=== PATIENT | female | born 1990 | race Caucasian/White ===

== ENCOUNTER → 2019-02-03 | Outpatient (CLI) | payer OTHER ==
--- NOTE | 2019-02-03 17:34 | CT ---
EXAMINATION TYPE: CT abdomen pelvis wo con DATE OF EXAM: 02/03/2019 COMPARISON: None INDICATION: Ventral hernia DLP: 989.30 mGycm, Automated exposure control for dose reduction was used. CONTRAST: 0 mL of Isovue 300. Study performed without Oral Contrast TECHNIQUE: Axial images were obtained from above the diaphragm to the pubic rami in the axial plane a t 5 mm thick sections. Reconstructed images are reviewed on the computer in the coronal plane. FINDINGS: Limited CT sections are obtained the lung bases. The lung bases are clear. CT ABDOMEN: Liver: Normal Spleen: Normal Pancreas: Normal Adrenal glands: The adrenal glands are normal. Gallbladder: Normal Kidneys: There is a 3.0 cm hypodensity within the mid right cortical medullary region. As could be a complex cyst. Underlying mass should be considered. Ultrasound is recommended for additional evaluati on. No hydronephrosis is present. No simple appearing cysts are present. There is a 0.4 cm calcifi cation at the inferior pole right kidney. No obstruction or hydronephrosis is evident. Aorta: Normal Inferior vena cava: Normal. CT PELVIS: Loops of bowel within the abdomen and pelvis are normal. Study is performed without oral contrast limiting bowel evaluation. Appendix: Normal as visualized. Urinary bladder: Normal. Genitourinary structures: There is a 4.1 cm hypodense area on the left adnexal region suspicious for a cyst. Right ovary appears normal. The uterus is unremarkable. Osseous structures: No suspicious lytic or sclerotic lesions. IMPRESSIONS: 1. Suspected 4.1 cm left ovarian cyst. This could be followed with ultrasound. 2. Cyst versus hypodense mass in the mid right kidney. Additional workup with ultrasound of the [facility] is recommended. 3. Nonobstructing renal stone inferior pole right kidney. 4. No suspicious anterior abdominal wall hernias.
== END | disposition home or self-care (01) ==
LOC: RADCTMAIN 07:56 → MERGE 07:56
PROVIDERS: ATTEND Surgery Plastic and Reconstructive Surgery
DX: N20.0 Calculus of kidney (principal)
CPT/HCPCS: 74176

== ENCOUNTER 2019-02-26 10:50 | Day surgery (SDC) | payer OTHER ==
[2019-02-21 12:33] VITALS: BMI 39.4
--- NOTE | 2019-02-26 07:58 | P.GSHP ---
History of Present Illness H&P Date: 02/26/19 CHIEF COMPLAINT: GERD HISTORY OF PRESENT ILLNESS: The patient is a 28-year-old female who presents reports gastroesophageal reflux disease. Upper endoscopy was offered for further evaluation and management. PAST MEDICAL HISTORY: Please see list. PAST SURGICAL HISTORY: Please see list. MEDICATIONS: Please see list. ALLERGIES: Please see list. SOCIAL HISTORY: No illicit drug use FAMILY HISTORY: No reports of Crohn disease or ulcerative colitis. REVIEW OF ORGAN SYSTEMS: CONSTITUTIONAL: No reports of fevers or chills. GI: Denies any blood in stools or constipation. PHYSICAL EXAM: VITAL SIGNS: Stable GENERAL: Well-developed and pleasant in no acute distress. HEENT: No scleral icterus. Extraocular movements grossly intact. Moist buccal mucosa. NECK: Supple without lymphadenopathy. CHEST: Unlabored respirations. Equal bilateral excursions. CARDIOVASCULAR: Regular rate and rhythm. Distal 2+ pulses. ABDOMEN: Soft, nondistended. MUSCULOSKELETAL: No clubbing, cyanosis, or edema. ASSESSMENT: 1. Gastroesophageal reflux disease PLAN: 1. Recommend proceeding with an upper endoscopy Past Medical History Past Medical History: Asthma Additional Past Medical History / Comment(s): possible hernia History of Any Multi-Drug Resistant Organisms: None Reported Past Surgical History: Section Additional Past Surgical History / Comment(s): C-SEC X 2 Past Anesthesia/Blood Transfusion Reactions: No Reported Reaction Smoking Status: Never smoker - Past Family History Mother Family Medical History: Deep Vein Thrombosis (DVT) Medications and Allergies Home Medications Medication Instructions Recorded Confirmed Type Calcium Carbonate [Calcium] 600 mg PO DAILY 02/21/19 02/21/19 History Cetirizine HCl [Zyrtec] 10 mg PO DAILY 02/21/19 02/21/19 History Magnesium Oxide [Mag-Ox] 500 mg PO DAILY 02/21/19 02/21/19 History Potassium 99 mg PO DAILY 02/21/19 02/21/19 History Allergies Allergy/AdvReac Type Severity Reaction Status Date / Time No Known Allergies Allergy Verified 02/03/19 11:40
[~2019-02-26 10:50] MED LIST: LACTATED RINGERS 1,000 ML IV SCH; LIDOCAINE 1% 20 ML VIAL (10MG/ML) FOR IV START INTRADERMA PRN
[2019-02-26 11:14] VITALS: TEMP 98.3
[2019-02-26] MEDS ORDERED: MIDAZOLAM 2 MG/2 ML VIAL ONE (12:46)
[2019-02-26] MEDS ORDERED: fentaNYL (PF) 50 MCG/ML 2 ML AMP ONE (12:46)
[2019-02-26] MEDS ORDERED: PROPOFOL 10 MG/ML 20 ML VIAL IV ONE (12:46)
[2019-02-26] MEDS ORDERED: LIDOCAINE 1% INJ 10MG/ML (20 ML MDV) ONE (12:46)
--- NOTE | 2019-02-26 13:02 | P.PCN ---
Date of Procedure: 02/26/19 Description of Procedure: PREOPERATIVE DIAGNOSIS: Gastroesophageal reflux disease. Morbid obesity. POSTOPERATIVE DIAGNOSIS: Morbid obesity. Gastritis. Gastroesophageal reflux disease. OPERATION: Esophagogastroduodenoscopy with biopsies along antrum. SURGEON: Heena Rubio MD ANESTHESIA: MAC. INDICATIONS: The patient is a 28-year-old female who presents with a history of reflux disease. Benefits and risks of the procedure were described. Informed consent was obtained. DESCRIPTION: The patient was brought into the endoscopy suite and laid in the left lateral decubitus position. An Olympus gastroscope was passed along the posterior oropharynx down to the distal esophagus where the squamocolumnar junction was encountered at 39 cm from the incisors. The stomach was entered and no bile reflux was found. Additional findings are listed below. Biopsies with cold forceps were obtained of the antrum. The first through third portion of the duodenum was examined and unremarkable. Retroflexion of the scope confirmed Hill grade 1 lower esophageal valve. The squamocolumnar junction demonstrated no LA grade A erosive esophagitis. The stomach was desufflated. The patient tolerated the procedure well. FINDINGS: Squamocolumnar junction 39 cm from the incisors. Diaphragmatic hiatus at 39 cm. Hill grade 1 lower esophageal valve. No LA grade A erosive esophagitis. No active duodenitis. Minimal chronic gastritis RECOMMENDATIONS: Upper endoscopy as needed. Plan - Discharge Summary Discharge Rx Participant: No New Discharge Prescriptions: No Action Cetirizine HCl [Zyrtec] 10 mg PO DAILY Potassium 99 mg PO DAILY Magnesium Oxide [Mag-Ox] 500 mg PO DAILY Calcium Carbonate [Calcium] 600 mg PO DAILY Discharge Medication List Calcium Carbonate [Calcium] 600 mg PO DAILY 02/21/19 [History] Cetirizine HCl [Zyrtec] 10 mg PO DAILY 02/21/19 [History] Magnesium Oxide [Mag-Ox] 500 mg PO DAILY 02/21/19 [History] Potassium 99 mg PO DAILY 02/21/19 [History] Follow up Appointment(s)/Referral(s): Heena Rubio MD [STAFF PHYSICIAN] - 03/11/19 Patient Instructions/Handouts: Gastroesophageal Reflux Disease (DC) Discharge Disposition: HOME SELF-CARE
[2019-02-26 13:17] VITALS: RESP 16
[2019-02-26 13:54] VITALS: BP 117/76; PULSE 64
== END 2019-02-26 14:07 | disposition home or self-care (01) ==
LOC: ORWHC2ENDO 10:50 → MERGE 12:15 → ORWHC2ENDO 14:07
PROVIDERS: ATTEND Surgery Plastic and Reconstructive Surgery
DX: K29.50 Unspecified chronic gastritis without bleeding (principal); K21.9 Gastro-esophageal reflux disease without esophagitis; E66.01 Morbid (severe) obesity due to excess calories; Z68.39 Body mass index [BMI] 39.0-39.9, adult; J45.909 Unspecified asthma, uncomplicated; Z79.899 Other long term (current) drug therapy
CPT/HCPCS: 81025; 88305; 43239; J2250; J2001; J3010; J2704

== ENCOUNTER → 2019-02-27 | Outpatient (CLI) | payer OTHER ==
--- NOTE | 2019-02-28 08:07 | US ---
EXAMINATION TYPE: US pelvis complete transvag DATE OF EXAM: 02/27/2019 COMPARISON: CT 01/2019 pelvic ultrasound of 02/27/2011 and 07/05/2017 ultrasound CLINICAL HISTORY: N83.202 OVARIAN CYST. Unable to fill bladder , pt ok' d TV TECHNIQUE: Transvaginal (TV). Date of LMP: 02/07/2019 EXAM MEASUREMENTS: Uterus: 7.4 x 4.0 x 5.3 cm Endometrial Stripe: 0.8 cm Right Ovary: 3.1 x 2.1 x 3.1 cm Left Ovary: 3.0 x 3.1 x 1.9 cm 1. Uterus: Anteverted fibroid anterior 3.0 x 2.0 x 2.4 cm hyperechoic foci anteriorly 1.2 x 0.3 x 0.9 cm may represent calcifications at the peripheral margin of this presumed uterine leiomyoma. 2. Endometrium: Within normal limits 3. Right Ovary: Multiple peripherally oriented follicles 4. Left Ovary: Multiple peripherally oriented follicles 5. Bilateral Adnexa: wnl 6. Posterior cul-de-sac: wnl IMPRESSION: 1. Hyperechoic 3.0 cm anterior uterine mass typically represents a leiomyoma or lipoma leiomyoma culver demar given that this is not definitely seen on prior the prior ultrasound of 07/05/2017 and the pelvic ultrasound of 2010 short-term follow-up is recommended in 6 months to ensure no interval growth. 2. Multiple peripherally oriented follicles can be seen in the setting of PCOS as or may be physiolog ic in nature. Correlate with clinical findings and laboratory values.
== END | disposition home or self-care (01) ==
LOC: RADUSWWP 15:34
PROVIDERS: ATTEND Family Medicine
DX: N85.9 Noninflammatory disorder of uterus, unspecified (principal)
CPT/HCPCS: 76830; 76856

== ENCOUNTER 2019-04-17 10:20 | Day surgery (SDC) | payer OTHER ==
[2019-04-14 13:12] VITALS: BMI 36.8
[~2019-04-17 10:20] MED LIST changes: +DEXAMETHASONE SOD PHOSPHATE 10 MG/ML 1 ML VIAL IV ONE; +HEPARIN SODIUM,PORCINE 5,000 UNIT/ML 1 ML VIAL SQ ONE; -LIDOCAINE 1% 20 ML VIAL (10MG/ML) FOR IV START INTRADERMA PRN; +MIDAZOLAM 2 MG/2 ML VIAL IV PRN; +ONDANSETRON 4 MG/2 ML VIAL IVP ONE; +SCOPOLAMINE 1.5MG/72HR PATCH TRANSDERM ONE
[2019-04-17] MEDS ORDERED: INDOCYANINE GREEN 25 MG VIAL IV STA (11:05)
--- NOTE | 2019-04-17 11:05 | P.GSHP ---
History of Present Illness H&P Date: 04/17/19 CHIEF COMPLAINT: Cholecystitis HISTORY OF PRESENT ILLNESS: The patient is a 28-year-old female who presents with history of epigastric including right upper quadrant abdominal pain. She underwent diagnostic studies for her gallbladder. Separately her clinical picture was consistent with cholecystitis. Now she presents for surgical intervention. PAST MEDICAL HISTORY: Please see list PAST SURGICAL HISTORY: Please see list MEDICATIONS: Please see list ALLERGIES: Denies. SOCIAL HISTORY: No illicit drug use or recent tobacco use FAMILY HISTORY: Pertinent for gallbladder disease REVIEW OF ORGAN SYSTEMS: CONSTITUTIONAL: No reports of fevers or chills. HEENT: Denies any troubles with the vision or hearing. ENDOCRINE: No reports of hypothyroidism. No diabetes. SKIN: No skin cancer. PHYSICAL EXAM: VITAL SIGNS: Afebrile vital signs stable GENERAL: Well-developed pleasant in no acute distress. HEENT: No scleral icterus. Extraocular movements grossly intact. Moist buccal mucosa. NECK: Supple without lymphadenopathy. CHEST: Unlabored respirations. Equal bilateral excursions. CARDIOVASCULAR: Regular rate regular rhythm rhythm. Distal 2+ pulses. ABDOMEN: Soft, nondistended. Tender along the epigastrium and right upper quadrant. MUSCULOSKELETAL: No clubbing, cyanosis, or edema. NEURO: Cranial nerves II to XII within normal limits. No focal or lateralizing signs. PSYCH: Alert and oriented to person, place and time. SKIN: Well-perfused good skin turgor. ASSESSMENT: 1. Epigastric and right upper quadrant abdominal pain 2. Chronic cholecystitis 3. Symptomatic gallstones. PLAN: 1. Will need a robotic cholecystectomy possible open. Benefits and risks were described. 2. Heparin for DVT prophylaxis 5000 units. 3. Antibiotic prophylaxis. Past Medical History Past Medical History: Asthma Additional Past Medical History / Comment(s): MIGRAINES. SKIN REACTIVE, GETS HIVES EASILY. HX CYST ON KIDNEY. History of Any Multi-Drug Resistant Organisms: None Reported Past Surgical History: Section Additional Past Surgical History / Comment(s): C-S X2, EGD. Past Anesthesia/Blood Transfusion Reactions: Previous Problems w/ Anesthesia, Motion Sickness, Postoperative Nausea & Vomiting (PONV) Additional Past Anesthesia/Blood Transfusion Reaction / Comment(s): AFTER EGD HAD HEADACHE, NAUSEA. Smoking Status: Never smoker - Past Family History Mother Family Medical History: Deep Vein Thrombosis (DVT) Additional Family Medical History / Comment(s): HAS ARTERY DISEASE Medications and Allergies Home Medications Medication Instructions Recorded Confirmed Type Calcium Carbonate [Calcium] 600 mg PO DAILY 02/21/19 04/14/19 History Cetirizine HCl [Zyrtec] 10 mg PO DAILY 02/21/19 04/17/19 History Magnesium Oxide [Mag-Ox] 500 mg PO DAILY 02/21/19 04/14/19 History Potassium 99 mg PO DAILY 02/21/19 04/14/19 History Acetaminophen/Caffeine [Excedrin 1 - 2 each PO DAILY PRN 04/14/19 04/17/19 History Tension Headache Cplt] buPROPion HCL [Wellbutrin XL] 150 mg PO DAILY 04/14/19 04/17/19 History Allergies Allergy/AdvReac Type Severity Reaction Status Date / Time No Known Allergies Allergy Verified 04/17/19 10:35 Surgical - Exam Vital Signs Temp Pulse Resp BP Pulse Ox 98 F 77 17 129/59 96 04/17/19 10:42 04/17/19 10:42 04/17/19 10:42 04/17/19 10:42 04/17/19 10:42
[2019-04-17] MEDS ORDERED: LIDOCAINE 1% INJ 10MG/ML (20 ML MDV) ONE (13:18)
[2019-04-17] MEDS ORDERED: GLYCOPYRROLATE 0.2 MG/ML 2 ML VIAL ONE (13:18)
[2019-04-17] MEDS ORDERED: ROCURONIUM BROMIDE 10 MG/ML 10 ML VIAL IV ONE (13:18)
[2019-04-17] MEDS ORDERED: INDOCYANINE GREEN 25 MG VIAL IV ONE (13:18)
[2019-04-17] MEDS ORDERED: SUCCINYLCHOLINE CHLORIDE 100 MG/5 ML SYR IV ONE (13:18)
[2019-04-17] MEDS ORDERED: PROPOFOL 10 MG/ML 20 ML VIAL IV ONE (13:18)
[2019-04-17] MEDS ORDERED: MIDAZOLAM 2 MG/2 ML VIAL ONE (13:18)
[2019-04-17] MEDS ORDERED: fentaNYL (PF) 50 MCG/ML 2 ML AMP ONE (13:18)
[2019-04-17] MEDS ORDERED: NEOSTIGMINE 1 MG/ML 10 ML VIAL ONE (13:18)
[2019-04-17] MEDS ORDERED: diphenhydrAMINE 50 MG/ML 1 ML VIAL ONE (13:18)
[2019-04-17] MEDS ORDERED: LIDOCAINE 1%-EPI 1:100,000 20 ML VIAL SQ ONE ×2 (13:47→13:50)
[2019-04-17] MEDS ORDERED: LACTATED RINGERS 1,000 ML IV ONE ×2 (14:32→15:33)
[2019-04-17 14:52] VITALS: TEMP 97.6
[2019-04-17] MEDS: HYDROmorphone 0.5 MG/0.5 ML SYRINGE IVP PRN ×4 (15:01→15:18)
[2019-04-17] MEDS ORDERED: ONDANSETRON 4 MG/2 ML VIAL IVP ONE (15:20)
[2019-04-17 15:40] VITALS: RESP 16
[2019-04-17] MEDS ORDERED: HYDROcodone/APAP 5-325MG 1 EACH TAB PO ONE (15:49)
[2019-04-17] MEDS ORDERED: diphenhydrAMINE 50 MG/ML 1 ML VIAL IVP ONE (15:56)
[2019-04-17] MEDS ORDERED: DEXAMETHASONE SOD PHOSPHATE 10 MG/ML 1 ML VIAL IV PRN (16:27)
[2019-04-17 16:41] VITALS: BP 114/68; PULSE 82
--- NOTE | 2019-04-17 17:10 | P.OP ---
Date of Procedure: 04/17/19 Description of Procedure: Date of Procedure: 04/17/19 SURGEON: HEENA RUBIO MD PREOPERATIVE DIAGNOSES: 1. Right upper quadrant abdominal pain 2. Chronic cholecystitis 3. Morbid obesity due to excess calories, BMI 36.9 4. Depressive disorder POSTOPERATIVE DIAGNOSES: 1. Right upper quadrant abdominal pain 2. Chronic cholecystitis 3. Morbid obesity due to excess calories, BMI 36.9 4. Depressive disorder OPERATION: Robotic-assisted da Frankie Xi laparoscopic cholecystectomy, multiport with FIREFLY ESTIMATED BLOOD LOSS: 5 mL. SPECIMENS REMOVED: Gallbladder. COMPLICATIONS: None. Operative Findings: 1. Folded along the infundibulum anatomical defect with resection of gallbladder infundibulum INDICATIONS: The patient is a 28-year-old female who presents with cholelcystitis. Surgical intervention with a laparoscopic cholecystectomy was described at length including injury to the biliary tree, bleeding, infection, need for further surgery. Informed consent was obtained. Robotic assisted laparoscopic approach was described. Benefits and risks of the procedure including but not limited to bleeding, infection, injury to the biliary tree was described. Informed consent was obtained. DESCRIPTION OF PROCEDURE: Patient was brought to the operating room, placed in supine position. After general induction, the abdomen had been prepped and draped in standard sterile fashion. The robotic da Frankie XI system was primed. After a timeout protocol was performed, the patient had been prepped and draped in standard sterile fashion. The patient was injected with indocyanine green. A 5 mm 0 degrees laparoscopic trocar entry was performed along the left upper quadrant. The abdomen insufflated to 15 mmHg pressure which was tolerated well. Diagnostic laparoscopy demonstrated no injury to bowel viscera or mesentery. The liver surface was unremarkable. Next, two 8 mm robotic ports were placed along the right upper abdomen. The camera 8-mm port was maintained along the epigastrium. Another 8 mm port was placed along the left upper abdominal wall after exchanging the 5 mm port. Please note that the ports were placed at least 10 to 15 cm away from the target anatomy of the gallbladder. The robot was docked along the left lateral abdomen. The patient was repositioned in reverse Trendelenburg position. Using a grasper for arm 3, a grasper for arm 4, including hook cautery for arm 1, the robotic system was docked and primed as described. Instruments were interchanged by the geological survey field assistant including hook cautery, Bovie cautery and clip appliers. I had sat at the console. The gallbladder fundus was retracted over the dome of the liver. Initial attention was brought to the infundibulum which was gently retracted in the inferior lateral approach. Using a grasper, the cystic duct including the cystic artery was carefully skeletonized. FIREFLY was used to identify the cystic artery and cystic structures. Large PLASTIC clips were used throughout the entire case. Using a clip garden equipment mechanic 2 clips were placed proximally, and 1 clip was placed distally along the cystic duct and then cauterized with the cautery. The gallbladder was divided between infundibulum and cystic duct with critical v iew obtained. Next, the cystic artery was similarly clipped and cauterized. Electro-Bovie cautery was used to remove the gallbladder from the hepatic fossa. Hemostasis was checked and found to be adequate. The robot was undocked. I re-scrubbed into the case. Using a 10 mm Endo Catch bag via the left upper quadrant incision, the specimen was removed from the abdominal cavity. All pneumoperitoneum instruments were evacuated from the abdominal cavity. The incisions were reapproximated using 4-0 Monocryl in an interrupted subcuticular fashion. Fascial defects were less than 8 mm in size. Please note along the trocar sites, local anesthetic was placed as a field block prior to insertion of all instruments. Liquid glue was applied to the skin. At the end of the procedure needle, sponge, and instrument count had been verified correct by the wastewater technician. The patient was transferred to postanesthesia care unit in stable condition. Intraoperative films were shared with the patient's family who were very pleased with the level of care. Plan - Discharge Summary Discharge Rx Participant: Yes New Discharge Prescriptions: New Ibuprofen [Motrin] 600 mg PO Q8HR PRN #30 tab PRN Reason: Pain Acetaminophen [Tylenol] 325 mg PO Q4H #30 tab HYDROcodone/APAP 5-325MG [[place] 5-325] 1 tab PO Q6HR PRN 3 Days #10 tab PRN Reason: Pain No Action Cetirizine HCl [Zyrtec] 10 mg PO DAILY Potassium 99 mg PO DAILY Magnesium Oxide [Mag-Ox] 500 mg PO DAILY Calcium Carbonate [Calcium] 600 mg PO DAILY buPROPion HCL [Wellbutrin XL] 150 mg PO DAILY Acetaminophen/Caffeine [Excedrin Tension Headache Cplt] 1 - 2 each PO DAILY PRN PRN Reason: Migraine Headache Discharge Medication List Calcium Carbonate [Calcium] 600 mg PO DAILY 02/21/19 [History] Cetirizine HCl [Zyrtec] 10 mg PO DAILY 02/21/19 [History] Magnesium Oxide [Mag-Ox] 500 mg PO DAILY 02/21/19 [History] Potassium 99 mg PO DAILY 02/21/19 [History] Acetaminophen/Caffeine [Excedrin Tension Headache Cplt] 1 - 2 each PO DAILY PRN 04/14/19 [History] buPROPion HCL [Wellbutrin XL] 150 mg PO DAILY 04/14/19 [History] Acetaminophen [Tylenol] 325 mg PO Q4H #30 tab 04/17/19 [Rx] HYDROcodone/APAP 5-325MG [[place] 5-325] 1 tab PO Q6HR PRN 3 Days #10 tab 04/17/19 [Rx] Ibuprofen [Motrin] 600 mg PO Q8HR PRN #30 tab 04/17/19 [Rx] Follow up Appointment(s)/Referral(s): Heena Rubio MD [STAFF PHYSICIAN] - 04/22/19 Patient Instructions/Handouts: *Surgery [facility] - (Anesthesia) Discharge Instructions Outpatient Surgery, Laparoscopic Cholecystectomy (DC) Activity/Diet/Wound Care/Special Instructions: May shower. No bath tub soaks for 10 days until April 26. Avoid fatty foods for the next 5 days. No lifting over 10 pounds in 10 days, until April 26. Discharge Disposition: HOME SELF-CARE
== END 2019-04-17 17:00 | disposition home or self-care (01) ==
LOC: OR 10:20
PROVIDERS: ATTEND Surgery Plastic and Reconstructive Surgery
DX: K81.1 Chronic cholecystitis (principal); E66.01 Morbid (severe) obesity due to excess calories; F32.9 Major depressive disorder, single episode, unspecified; J45.909 Unspecified asthma, uncomplicated; Z68.36 Body mass index [BMI] 36.0-36.9, adult; Z79.82 Long term (current) use of aspirin; Z79.899 Other long term (current) drug therapy
CPT/HCPCS: 81025; 88304; 47562; J2250; J1200; J1644; J1100; J2710; J0690; J2405; J2001; J3010; J0330; J2704; J1170

== ENCOUNTER → 2019-05-20 | Outpatient (CLI) | payer OTHER ==
--- NOTE | 2019-05-20 11:49 | US ---
EXAMINATION TYPE: US kidneys/renal and bladder DATE OF EXAM: 05/20/2019 COMPARISON: NONE CLINICAL HISTORY: N28.1 Cyst of kidney, acquired. EXAM MEASUREMENTS: Right Kidney: 11.1 x 5.7 x 5.5 cm Left Kidney: 11.0 x 4.6 x 4.8 cm Right Kidney: No hydronephrosis. There is a right renal cyst again noted measuring 3.9 x 2.7 x 3.8cm . This demonstrates increased through transmission and well-defined posterior wall and measures fluid attenuation on the prior CT of 02/03/2019. This has slightly increased in size from the prior of 2017 where this measured 3.3 x 3.2 x 3.1 cm. No new septations or nodules. Left Kidney: No hydronephrosis or masses seen Bladder: wnl There is no evidence for hydronephrosis at this point in time. No nephrolithiasis is seen. The urina ry bladder is anechoic. Bilateral ureteral jets are seen. IMPRESSION: Slight interval increase in size of the right renal cyst. No internal complexity is seen.
== END | disposition home or self-care (01) ==
LOC: RADUSWWP 10:28
PROVIDERS: ATTEND Family Medicine
DX: N28.1 Cyst of kidney, acquired (principal)
CPT/HCPCS: 76770

== ENCOUNTER → 2019-07-24 | Outpatient (CLI) | payer OTHER ==
[2019-07-24 10:00] LABS: HCT 36.8 % (34.0-46.0); HGB 12.3 gm/dL (11.4-16.0); MCH 29.2 pg (25.0-35.0); MCHC 33.4 g/dL (31.0-37.0); MCV 87.6 fL (80.0-100.0); Mean Platelet Volume 5.6; Platelet Count 362 k/uL (150-450); RDW 13.8 % (11.5-15.5); WBC 15.2 k/uL (3.8-10.6)
[2019-07-24 17:27] LABS: T4, Free (Free Thyroxine) 0.7 ng/dL (0.80-1.80)
[2019-07-25 05:27] LABS: African American GFR (CKD) 135.7 (60.0-200.0); Albumin 4.5 g/dL (3.80-4.90); Albumin/Globulin Ratio 2.25 (1.60-3.17); Anion Gap 11.6 mmol/L (4.00-12.00); BUN/Creat Ratio 28.57 Ratio (12.00-20.00); Calcium 9.2 mg/dL (8.7-10.3); Carbon Dioxide 24.4 mmol/L (21.6-31.8); Potassium 4.5 mmol/L (3.5-5.5); Total Bilirubin 0.2 mg/dL (0.2-1.2); Total Protein 6.5 g/dL (6.2-8.2)
== END | disposition home or self-care (01) ==
LOC: LABWHC1 09:02
PROVIDERS: ATTEND Nurse Practitioner Family
DX: R41.3 Other amnesia (principal)
CPT/HCPCS: 36415; 80053; 82306; 82607; 82746; 83090; 84439; 84443; 84481; 85027

== ENCOUNTER 2020-08-24 17:24 | Emergency (ER) | payer OTHER ==
[2020-08-24 17:28] VITALS: RESP 18
[2020-08-24 18:39] LABS: Basophils % (A) 0 %; Eosinophils # (A) 0.2 k/uL (0-0.7); Eosinophils % (A) 2 %; HCT 35.6 % (34.0-46.0); Lymphocytes # (A) 3.3 k/uL (1.0-4.8); Lymphocytes % (A) 35 %; MCH 28.3 pg (25.0-35.0); MCHC 33.6 g/dL (31.0-37.0); MCV 84.2 fL (80.0-100.0); Mean Platelet Volume 6.7; Monocytes # (A) 0.4 k/uL (0-1.0); Monocytes % (A) 4 %; Neutrophils # (A) 5.4 k/uL (1.3-7.7); Neutrophils % (A) 57 %; Platelet Count 312 k/uL (150-450); RBC 4.23 m/uL (3.80-5.40); RDW 13.4 % (11.5-15.5); WBC 9.4 k/uL (3.8-10.6)
[2020-08-24 19:02] LABS: ALT 20 U/L (4-34); AST 25 U/L (14-36); African American GFR (CKD) >90 (>60 ml/min/1.73 sqM); Albumin 4.1 g/dL (3.5-5.0); Alkaline Phosphatase 42 U/L (38-126); Amylase 62 U/L (30-110); Anion Gap 7 mmol/L; Blood Urea Nitrogen 10 mg/dL (7-17); Calcium 9.2 mg/dL (8.4-10.2); Carbon Dioxide 23 mmol/L (22-30); Chloride 108 mmol/L (98-107); Glucose 91 mg/dL (74-99); Lipase 85 U/L (23-300); Non-African American GFR(CKD) >90 (>60 ml/min/1.73 sqM); Sodium 138 mmol/L (137-145); Total Bilirubin 0.3 mg/dL (0.2-1.3); Total Protein 7.1 g/dL (6.3-8.2)
[2020-08-24 19:04] LABS: Appearance,Urine Cloudy (Clear); Bacteria,Urine Rare /hpf; Bilirubin,Urine Negative (Negative); Blood,Urine Moderate (Negative); Color,Urine Yellow; Glucose,Urine (UA) Negative (Negative); Ketones,Urine Negative (Negative); Leukocyte Esterase,Urine Large (Negative); Mucus,Urine Many /hpf; Nitrite,Urine Negative (Negative); Protein,Urine Trace (Negative); RBC,Urine 125 /hpf (0-5); Specific Gravity,Urine 1.031 (1.001-1.035); Squamous Epithelial Cell,Urine 7 /hpf (0-4); Urobilinogen,Urine <2.0 mg/dL (<2.0); WBC,Urine 15 /hpf (0-5)
[2020-08-24 19:18] LABS: HCG,Quantitative Serum 180.8 mIU/mL
[2020-08-24] MEDS ORDERED: ACETAMINOPHEN TAB 325 MG TAB PO STA (20:21)
--- NOTE | 2020-08-24 20:45 | US ---
EXAMINATION TYPE: Transabdominal DATE OF EXAM: 08/24/2020 8:04 PM COMPARISON: US 2018 CLINICAL HISTORY: rl pelvic pain + preg test. Right-sided pain x 2 days. Hx 2 C-Sections. . EXAM PERFORMED: Transvaginal (TV) and Transabdominal (TA) EXAM MEASUREMENTS: GESTATIONAL AGE / DATING Physician Established: Not yet established. Dates by LMP: (4 weeks/1 day) EDC: 05/02/2021 Dates by First Scan: This is first scan Dates by Current Scan for: Possible gestational sac measures out of range. MATERNAL ANATOMY Uterus: 9.3 x 5.4 x 4.3 cm. Anteverted. Hyperechoic focus seen in lower uterus/cervix measuring 0.4 x 0.7 x 0.3 cm. Right Ovary: 3.0 x 2.5 x 1.9 cm. Follicles seen. *Area seen adjacent to or connected to right ovary a s mentioned below. Complex area seen in right ovary measuring 0.6 x 0.7 x 0.6 cm. Left Ovary: 3.6 x 2.4 x 2.8 cm. Area of mixed echogenicity seen as mentioned below measuring 1.7 x 1 .4 x 2.0 cm. Post CDS / Adnexa: *Anechoic area seen in lateral right adnexa, adjacent or connected to right ovary measurin.3 x 1.2 x 0.8 cm. Presence of free fluid: Yes, fluid seen in right adnexa medial to right ovary and fluid in cul de sac , appears complex. Presence of corpus luteal cyst: Area of mixed echogenicity and peripheral vascularity seen in left ov darell measuring 1.7 x 1.4 x 2.0 cm. GESTATION / SURVEY MSD: 0.33 cm. (OOR) IUP: Possible gestational sac that measures out of range seen at this time. Date of LMP: 07/26/2020 Beta HcG (if available): Detected IMPRESSION: Possible early intrauterine . Follow-up exam recommended in 14 days to confirm a living fetu s. No suspicious adnexal mass seen to suggest ectopic .
--- NOTE | 2020-08-24 21:35 | ED ---
Abdominal Pain HPI - General Chief Complaint: Abdominal Pain Stated Complaint: Abd pain Time Seen by Provider: 08/24/20 17:40 Source: patient Mode of arrival: ambulatory Limitations: no limitations - History of Present Illness Initial Comments: 30yo female presenting for cc of postive right sided abdominal pain. pt states for the past 2 weeks she has been being evaluated for a kidney stone. she states she has an upcoming appointment with Dr. Ramos for removal. She states she took a home test because she wanted to be sure she wasnt before the procedure and states it was positive. she told her urologist who wanted her to come here to ensure there was no ectopic with the right sided pain she had been experiencing. pt denies changes in pain characteristics, described as sharp, denies vaginal discharge or bleeding. Pt denies additional complaints. Denies fevers. Patient appears well nontoxic on arrival BP stable. - Related Data Home Medications Medication Instructions Recorded Confirmed Cetirizine HCl [Zyrtec] 10 mg PO HS 02/21/19 08/24/20 Allergies Allergy/AdvReac Type Severity Reaction Status Date / Time No Known Allergies Allergy Verified 08/24/20 18:38 Review of Systems ROS Statement: Those systems with pertinent positive or pertinent negative responses have been documented in the HPI. ROS Other: All systems not noted in ROS Statement are negative. Past Medical History Past Medical History: Asthma Additional Past Medical History / Comment(s): kidney stones History of Any Multi-Drug Resistant Organisms: None Reported Past Surgical History: Section Past Psychological History: No Psychological Hx Reported Smoking Status: Never smoker Past Alcohol Use History: None Reported Past Drug Use History: None Reported General Exam - General Exam Comments Initial Comments: General: The patient is awake and alert, in no distress, and does not appear acutely ill. Eye: Pupils are equal, round and reactive to light, extra-ocular movements are intact. No nystagmus. There is normal conjunctiva bilaterally. No signs of icterus. Gastrointestinal: Soft, non-distended, right sided abdominal pain to palpation of the abdomen without masses or organomegaly noted. There is no rebound or guarding present. Refused pelvic exam. Musculoskeletal: Normal ROM, no tenderness. Strength 5/5. Sensation intact. Radial pulses equal bilaterally 2+. Neurological: A&O x 3. CN II-XII intact grossly, There are no obvious motor or sensory deficits. Coordination appears grossly intact. Speech is normal. Skin: Skin is warm and dry and no rashes or lesions are noted. Psychiatric: Cooperative, appropriate mood & affect, normal judgment. Limitations: no limitations Course Vital Signs 08/24/20 08/24/20 17:25 20:15 Temperature 98.7 F Pulse Rate 94 85 Respiratory 18 18 Rate Blood Pressure 112/74 113/57 O2 Sat by Pulse 97 100 Oximetry Medical Decision Making - Medical Decision Making Labs stable. RBC in urine with hx of stones. no fevers. US no ectopic, possible developing IUP but not definitive. patient hcg low at 180. consulted OBGYN cotton classer physician Dr. Luna for patient OBGYN Dr. Myrick who recommends f/u outpatient for repeat US and HCG in 2 days. Patient is to take tylenol for pain, return for fevers, vaginal bleeding or worsening pain. patient discharged appearing well agreeable to care plan. Dr. Neri agreeable to care plan. pt was givne RX for the repeat HCG in the ER. - Lab Data Result diagrams: 08/24/20 18:30 08/24/20 18:30 Lab Results 08/24/20 08/24/20 08/24/20 Range/Units 18:30 18:30 18:30 WBC 9.4 (3.8-10.6) k/uL RBC 4.23 (3.80-5.40) m/uL Hgb 12.0 (11.4-16.0) gm/dL Hct 35.6 (34.0-46.0) % MCV 84.2 (80.0-100.0) fL MCH 28.3 (25.0-35.0) pg MCHC 33.6 (31.0-37.0) g/dL RDW 13.4 (11.5-15.5) % Plt Count 312 (150-450) k/uL MPV 6.7 Neutrophils % 57 % Lymphocytes % 35 % Monocytes % 4 % Eosinophils % 2 % Basophils % 0 % Neutrophils # 5.4 (1.3-7.7) k/uL Lymphocytes # 3.3 (1.0-4.8) k/uL Monocytes # 0.4 (0-1.0) k/uL Eosinophils # 0.2 (0-0.7) k/uL Basophils # 0.0 (0-0.2) k/uL Sodium (137-145) mmol/L Potassium (3.5-5.1) mmol/L Chloride (98-107) mmol/L Carbon Dioxide (22-30) mmol/L Anion Gap mmol/L BUN (7-17) mg/dL Creatinine (0.52-1.04) mg/dL Est GFR (CKD-EPI)AfAm (>60 ml/min/1.73 sqM) Est GFR (CKD-EPI)NonAf (>60 ml/min/1.73 sqM) Glucose (74-99) mg/dL Calcium (8.4-10.2) mg/dL Total Bilirubin (0.2-1.3) mg/dL AST (14-36) U/L ALT (4-34) U/L Alkaline Phosphatase (38-126) U/L Total Protein (6.3-8.2) g/dL Albumin (3.5-5.0) g/dL Amylase (30-110) U/L Lipase (23-300) U/L HCG, Quant mIU/mL Urine Color Yellow Urine Appearance Cloudy H (Clear) Urine pH 6.0 (5.0-8.0) Ur Specific [place] 1.031 (1.001-1.035) Urine Protein Trace H (Negative) Urine Glucose (UA) Negative (Negative) Urine Ketones Negative (Negative) Urine Blood Moderate H (Negative) Urine Nitrite Negative (Negative) Urine Bilirubin Negative (Negative) Urine Urobilinogen <2.0 (<2.0) mg/dL Ur Leukocyte Esterase Large H (Negative) Urine RBC 125 H (0-5) /hpf Urine WBC 15 H (0-5) /hpf Ur Squamous Epith Cells 7 H (0-4) /hpf Urine Bacteria Rare H (None) /hpf Urine Mucus Many H (None) /hpf Urine HCG, Qual Detected (Not Detectd) 08/24/20 Range/Units 18:30 WBC (3.8-10.6) k/uL RBC (3.80-5.40) m/uL Hgb (11.4-16.0) gm/dL Hct (34.0-46.0) % MCV (80.0-100.0) fL MCH (25.0-35.0) pg MCHC (31.0-37.0) g/dL RDW (11.5-15.5) % Plt Count (150-450) k/uL MPV Neutrophils % % Lymphocytes % % Monocytes % % Eosinophils % % Basophils % % Neutrophils # (1.3-7.7) k/uL Lymphocytes # (1.0-4.8) k/uL Monocytes # (0-1.0) k/uL Eosinophils # (0-0.7) k/uL Basophils # (0-0.2) k/uL Sodium 138 (137-145) mmol/L Potassium 4.0 (3.5-5.1) mmol/L Chloride 108 H (98-107) mmol/L Carbon Dioxide 23 (22-30) mmol/L Anion Gap 7 mmol/L BUN 10 (7-17) mg/dL Creatinine 0.64 (0.52-1.04) mg/dL Est GFR (CKD-EPI)AfAm >90 (>60 ml/min/1.73 sqM) Est GFR (CKD-EPI)NonAf >90 (>60 ml/min/1.73 sqM) Glucose 91 (74-99) mg/dL Calcium 9.2 (8.4-10.2) mg/dL Total Bilirubin 0.3 (0.2-1.3) mg/dL AST 25 (14-36) U/L ALT 20 (4-34) U/L Alkaline Phosphatase 42 (38-126) U/L Total Protein 7.1 (6.3-8.2) g/dL Albumin 4.1 (3.5-5.0) g/dL Amylase 62 (30-110) U/L Lipase 85 (23-300) U/L HCG, Quant 180.8 mIU/mL Urine Color Urine Appearance (Clear) Urine pH (5.0-8.0) Ur Specific [place] (1.001-1.035) Urine Protein (Negative) Urine Glucose (UA) (Negative) Urine Ketones (Negative) Urine Blood (Negative) Urine Nitrite (Negative) Urine Bilirubin (Negative) Urine Urobilinogen (<2.0) mg/dL Ur Leukocyte Esterase (Negative) Urine RBC (0-5) /hpf Urine WBC (0-5) /hpf Ur Squamous Epith Cells (0-4) /hpf Urine Bacteria (None) /hpf Urine Mucus (None) /hpf Urine HCG, Qual (Not Detectd) Disposition Clinical Impression: RLQ abdominal pain Disposition: HOME SELF-CARE Condition: Good Instructions (If sedation given, give patient instructions): Abdominal Pain in (ED) Additional Instructions: Please use medication as discussed. Please follow-up with family doctor in the next 2 days, oBGYN call tomorrow for intake/follow-up and urology. Please return to emergency room if the symptoms increase or worsen or for any other concerns. Is patient prescribed a controlled substance at d/c from ED?: No Referrals: Xiao Ramos MD [Primary Care Provider] - 1-2 days Heena Myrick MD [STAFF PHYSICIAN] - 1-2 days Time of Disposition: 21:35
[2020-08-24 22:53] VITALS: BP 123/74; PULSE 80; TEMP 98.1
== END 2020-08-24 22:02 | disposition home or self-care (01) ==
LOC: EC 17:24
DX: R10.31 Right lower quadrant pain (principal); Z79.899 Other long term (current) drug therapy; Z87.442 Personal history of urinary calculi
CPT/HCPCS: 36415; 76801; 76817; 80053; 81001; 81025; 82150; 83690; 84702; 85025; 99284

== ENCOUNTER → 2020-08-24 | Outpatient (CLI) | payer OTHER ==
[2020-08-24 13:12] LABS: Basophils % (A) 0 %; Eosinophils # (A) 0.1 k/uL (0-0.7); Eosinophils % (A) 2 %; HCT 35.6 % (34.0-46.0); Lymphocytes # (A) 2.9 k/uL (1.0-4.8); Lymphocytes % (A) 39 %; MCH 28.9 pg (25.0-35.0); MCHC 33.9 g/dL (31.0-37.0); MCV 85.3 fL (80.0-100.0); Mean Platelet Volume 6.9; Monocytes # (A) 0.3 k/uL (0-1.0); Monocytes % (A) 3 %; Neutrophils # (A) 3.9 k/uL (1.3-7.7); Neutrophils % (A) 54 %; Platelet Count 273 k/uL (150-450); RBC 4.17 m/uL (3.80-5.40); WBC 7.3 k/uL (3.8-10.6)
[2020-08-24 13:22] LABS: African American GFR (CKD) >90 (>60 ml/min/1.73 sqM); Anion Gap 6 mmol/L; Blood Urea Nitrogen 10 mg/dL (7-17); Calcium 9.2 mg/dL (8.4-10.2); Carbon Dioxide 26 mmol/L (22-30); Chloride 107 mmol/L (98-107); Glucose 92 mg/dL (74-99); Non-African American GFR(CKD) >90 (>60 ml/min/1.73 sqM); Potassium 4.4 mmol/L (3.5-5.1); Sodium 139 mmol/L (137-145)
[2020-08-24 13:48] LABS: Appearance,Urine Cloudy (Clear); Bilirubin,Urine Negative (Negative); Blood,Urine Moderate (Negative); Color,Urine Yellow; Glucose,Urine (UA) Negative (Negative); Ketones,Urine Negative (Negative); Leukocyte Esterase,Urine Large (Negative); Mucus,Urine Many /hpf; Nitrite,Urine Negative (Negative); Protein,Urine 1+ (Negative); RBC,Urine >182 /hpf (0-5); Specific Gravity,Urine 1.025 (1.001-1.035); Squamous Epithelial Cell,Urine 9 /hpf (0-4); Urobilinogen,Urine <2.0 mg/dL (<2.0); WBC,Urine 10 /hpf (0-5)
== END | disposition home or self-care (01) ==
LOC: LABPAT 12:18
PROVIDERS: ATTEND Urology
DX: Z01.818 Encounter for other preprocedural examination (principal); N20.1 Calculus of ureter; R31.21 Asymptomatic microscopic hematuria
CPT/HCPCS: 36415; 80048; 81001; 85025; 87086

== ENCOUNTER → 2020-08-26 | Outpatient (CLI) | payer OTHER | END | disposition home or self-care (01) | LOC: LABWHC1 09:04 | PROVIDERS: ATTEND Physician Assistant Medical | DX: R10.31 Right lower quadrant pain (principal) | CPT/HCPCS: 36415; 84702 ==

== ENCOUNTER → 2020-08-30 | Outpatient (CLI) | payer OTHER ==
--- NOTE | 2020-08-30 08:48 | US ---
EXAMINATION TYPE: US kidneys/renal and bladder DATE OF EXAM: 08/30/2020 COMPARISON: US 05/20/2019 CLINICAL HISTORY: N20.0 calculus of kidneys. EXAM MEASUREMENTS: Right Kidney: 13.3 x 6.1 x 6.0 cm Left Kidney: 11.0 x 4.6 x 4.8 cm Right Kidney: Moderate hydronephrosis. Cyst visualized measuring 3.8 x 2.6 x 3.6 cm Left Kidney: No hydronephrosis or masses seen Bladder: wnl Bilateral Jets seen: yes IMPRESSION: Moderate right-sided hydronephrosis.
== END | disposition home or self-care (01) ==
LOC: RADUSWWP 07:42
PROVIDERS: ATTEND Urology
DX: N13.30 Unspecified hydronephrosis (principal)
CPT/HCPCS: 76770

== ENCOUNTER 2020-09-03 13:36 | Observation (INO) | payer OTHER ==
[2020-09-03] MEDS ORDERED: SODIUM CHLORIDE 0.9% 1,000 ML IV STA (14:13)
[2020-09-03] MEDS ORDERED: MORPHINE SULFATE 2 MG/ML SYRINGE IVP ONE (14:13)
[2020-09-03] MEDS ORDERED: METOCLOPRAMIDE 5 MG/ML 2 ML VIAL IVP STA (14:13)
[2020-09-03 14:35] LABS: Basophils # (A) 0.1 k/uL (0-0.2); Basophils % (A) 1 %; Eosinophils # (A) 0.1 k/uL (0-0.7); Eosinophils % (A) 1 %; HCT 32.6 % (34.0-46.0); HGB 11.4 gm/dL (11.4-16.0); Lymphocytes # (A) 1.2 k/uL (1.0-4.8); Lymphocytes % (A) 11 %; MCH 29.2 pg (25.0-35.0); MCHC 34.8 g/dL (31.0-37.0); MCV 83.9 fL (80.0-100.0); Monocytes # (A) 0.5 k/uL (0-1.0); Monocytes % (A) 5 %; Neutrophils # (A) 8.7 k/uL (1.3-7.7); Neutrophils % (A) 82 %; Platelet Count 288 k/uL (150-450); RBC 3.89 m/uL (3.80-5.40); WBC 10.6 k/uL (3.8-10.6)
[2020-09-03 14:40] LABS: Appearance,Urine Cloudy (Clear); Bacteria,Urine Few /hpf; Bilirubin,Urine Negative (Negative); Blood,Urine Moderate (Negative); Color,Urine Yellow; Glucose,Urine (UA) Negative (Negative); Hyaline Casts,Urine 1 /lpf (0-2); Ketones,Urine Trace (Negative); Leukocyte Esterase,Urine Large (Negative); Mucus,Urine Occasional /hpf; Nitrite,Urine Negative (Negative); PH, Urine 6.5 (5.0-8.0); Protein,Urine Trace (Negative); RBC,Urine 3 /hpf (0-5); Specific Gravity,Urine 1.014 (1.001-1.035); Squamous Epithelial Cell,Urine 4 /hpf (0-4); Urobilinogen,Urine <2.0 mg/dL (<2.0); WBC,Urine 139 /hpf (0-5)
[2020-09-03 14:44] LABS: ALT 55 U/L (4-34); AST 38 U/L (14-36); African American GFR (CKD) >90 (>60 ml/min/1.73 sqM); Albumin 4.2 g/dL (3.5-5.0); Alkaline Phosphatase 73 U/L (38-126); Anion Gap 8 mmol/L; Blood Urea Nitrogen 12 mg/dL (7-17); Carbon Dioxide 22 mmol/L (22-30); Chloride 103 mmol/L (98-107); Glucose 100 mg/dL (74-99); Non-African American GFR(CKD) 81 (>60 ml/min/1.73 sqM); Potassium 4.5 mmol/L (3.5-5.1); Sodium 133 mmol/L (137-145); Total Bilirubin 0.8 mg/dL (0.2-1.3); Total Protein 7.2 g/dL (6.3-8.2)
[2020-09-03 15:01] LABS: HCG,Quantitative Serum 1973.3 mIU/mL
--- NOTE | 2020-09-03 15:09 | ED ---
Abdominal Pain HPI - General Chief Complaint: Abdominal Pain Stated Complaint: Kidney Stone Time Seen by Provider: 09/03/20 13:58 Source: patient Mode of arrival: ambulatory Limitations: no limitations - History of Present Illness Initial Comments: Patient is a 30-year-old female presenting to the emergency Department complains of right sided abdominal pain and flank pain for the past 3 days. Patient is currently in early , she believes 4-5 weeks along, and also has been dealing with a kidney stone for the past few weeks. . She is scheduled to see Dr. Ramos in one week for stone removal. Patient states last 3 days she feels like her symptoms have worsened. Patient continues to be nauseous, increasing in pain, and decreased appetite. She states is not been able to eat food in the last 3-4 days. She describes the pain as radiating from her right flank all the way across her right side of the abdomen and into her groin. P atient had an ultrasound performed 4 days ago showed right-sided hydronephrosis. She denies any fever, chills. She does admit to some mild constipation. Patient admits to some light spotting a few days ago but none today. She denies any chest pain or shortness of breath. She is no further complaints. Upon arrival to the ER, her vitals are stable. - Related Data Home Medications Medication Instructions Recorded Confirmed Acetaminophen Tab [Tylenol Tab] 1,000 mg PO Q6HR PRN 09/03/20 09/03/20 HYDROcodone/APAP 5-325MG [[place] 2 tab PO Q6H PRN 09/03/20 09/03/20 5-325] Allergies Allergy/AdvReac Type Severity Reaction Status Date / Time No Known Allergies Allergy Verified 09/03/20 17:58 Review of Systems ROS Statement: Those systems with pertinent positive or pertinent negative responses have been documented in the HPI. ROS Other: All systems not noted in ROS Statement are negative. Past Medical History Past Medical History: Asthma Additional Past Medical History / Comment(s): kidney stones History of Any Multi-Drug Resistant Organisms: None Reported Past Surgical History: Section Past Psychological History: No Psychological Hx Reported Smoking Status: Never smoker Past Alcohol Use History: None Reported Past Drug Use History: None Reported - Past Family History Mother Family Medical History: Congestive Heart Failure (CHF), Hypertension Father Family Medical History: No Reported History General Exam - General Exam Comments Initial Comments: GENERAL: Patient is well-developed and well-nourished. Patient is nontoxic and in mild distress. HEAD: Atraumatic, normocephalic. EYES: Pupils equal round and reactive to light, extraocular movements intact, sclera anicteric, conjunctiva are normal. Eyelids were unremarkable. ENT: TMs normal, nares patent, oropharynx clear without exudates. Moist mucous membranes. NECK: Normal range of motion, supple without lymphadenopathy or JVD. LUNGS: Unlabored respirations. Breath sounds clear to auscultation bilaterally and equal. No wheezes rales or rhonchi. HEART: Regular rate and rhythm without murmurs, rubs or gallops. ABDOMEN: Right-sided abdominal tenderness, right flank pain tenderness. Soft, no rmoactive bowel sounds. No guarding, no rebound. No masses appreciated. : Deferred MUSCULOSKELETAL: Normal extremities with adequate strength and normal range of motion, no pitting or edema. No clubbing or cyanosis. NEUROLOGICAL: Patient is alert and oriented x 3. Motor and sensory are also intact. Cranial nerves II through XII grossly intact. Symmetrical smile. Normal speech, normal gait. PSYCH: Normal mood, normal affect. SKIN: Warm, Dry, normal turgor, no rashes or lesions noted. Limitations: no limitations Course Vital Signs 09/03/20 09/03/20 13:43 17:09 Temperature 98.4 F Pulse Rate 99 76 Respiratory 18 18 Rate Blood Pressure 136/96 105/76 O2 Sat by Pulse 99 98 Oximetry Medical Decision Making - Medical Decision Making Patient is a 30-year-old female, currently 5 weeks , presenting with right-sided flank pain with radiation that's been increasing over the past 3 days, vomiting, uncontrolled pain. Vital signs are stable upon arrival. Lab shows a white count 10.6, a kidney function is stable at this time. ECG Quant is almost 2000. Urine shows significant amount of WBC clumps, infection. Urine culture is pending. Patient was given fluids, morphine for pain control. She states the pain has subsided some but is still having a significant amount of pain. Ultrasound reveals right-sided hydronephrosis. I did consult Dr. Montes De Oca and he was okay with admission, but would prefer [facility] to be primary. I spoke with Dr. Corona who covers for Dr. Myrick and he is in agreement with admission. She'll be continued on fluids, pain control, she would be started on Rocephin for UTI. Patient is in agreement with this plan of care. Case discussed with Dr. Brewer. - Lab Data Result diagrams: 09/03/20 14:17 09/03/20 14:17 Lab Results 09/03/20 09/03/20 09/03/20 Range/Units 14:17 14:17 14:17 WBC 10.6 (3.8-10.6) k/uL RBC 3.89 (3.80-5.40) m/uL Hgb 11.4 (11.4-16.0) gm/dL Hct 32.6 L (34.0-46.0) % MCV 83.9 (80.0-100.0) fL MCH 29.2 (25.0-35.0) pg MCHC 34.8 (31.0-37.0) g/dL RDW 13.0 (11.5-15.5) % Plt Count 288 (150-450) k/uL MPV 7.0 Neutrophils % 82 % Lymphocytes % 11 % Monocytes % 5 % Eosinophils % 1 % Basophils % 1 % Neutrophils # 8.7 H (1.3-7.7) k/uL Lymphocytes # 1.2 (1.0-4.8) k/uL Monocytes # 0.5 (0-1.0) k/uL Eosinophils # 0.1 (0-0.7) k/uL Basophils # 0.1 (0-0.2) k/uL Sodium 133 L (137-145) mmol/L Potassium 4.5 (3.5-5.1) mmol/L Chloride 103 (98-107) mmol/L Carbon Dioxide 22 (22-30) mmol/L Anion Gap 8 mmol/L BUN 12 (7-17) mg/dL Creatinine 0.95 (0.52-1.04) mg/dL Est GFR (CKD-EPI)AfAm >90 (>60 ml/min/1.73 sqM) Est GFR (CKD-EPI)NonAf 81 (>60 ml/min/1.73 sqM) Glucose 100 H (74-99) mg/dL Plasma Lactic Acid Emanuel (0.7-2.0) mmol/L Calcium 9.0 (8.4-10.2) mg/dL Total Bilirubin 0.8 (0.2-1.3) mg/dL AST 38 H (14-36) U/L ALT 55 H (4-34) U/L Alkaline Phosphatase 73 (38-126) U/L Total Protein 7.2 (6.3-8.2) g/dL Albumin 4.2 (3.5-5.0) g/dL HCG, Quant 1973.3 mIU/mL Urine Color Yellow Urine Appearance Cloudy H (Clear) Urine pH 6.5 (5.0-8.0) Ur Specific [place] 1.014 (1.001-1.035) Urine Protein Trace H (Negative) Urine Glucose (UA) Negative (Negative) Urine Ketones Trace H (Negative) Urine Blood Moderate H (Negative) Urine Nitrite Negative (Negative) Urine Bilirubin Negative (Negative) Urine Urobilinogen <2.0 (<2.0) mg/dL Ur Leukocyte Esterase Large H (Negative) Urine RBC 3 (0-5) /hpf Urine WBC 139 H (0-5) /hpf Urine WBC Clumps Moderate H (None) /hpf Ur Squamous Epith Cells 4 (0-4) /hpf Urine Bacteria Few H (None) /hpf Hyaline Casts 1 (0-2) /lpf Urine Mucus Occasional H (None) /hpf 12/18/20 Range/Units 14:17 WBC (3.8-10.6) k/uL RBC (3.80-5.40) m/uL Hgb (11.4-16.0) gm/dL Hct (34.0-46.0) % MCV (80.0-100.0) fL MCH (25.0-35.0) pg MCHC (31.0-37.0) g/dL RDW (11.5-15.5) % Plt Count (150-450) k/uL MPV Neutrophils % % Lymphocytes % % Monocytes % % Eosinophils % % Basophils % % Neutrophils # (1.3-7.7) k/uL Lymphocytes # (1.0-4.8) k/uL Monocytes # (0-1.0) k/uL Eosinophils # (0-0.7) k/uL Basophils # (0-0.2) k/uL Sodium (137-145) mmol/L Potassium (3.5-5.1) mmol/L Chloride (98-107) mmol/L Carbon Dioxide (22-30) mmol/L Anion Gap mmol/L BUN (7-17) mg/dL Creatinine (0.52-1.04) mg/dL Est GFR (CKD-EPI)AfAm (>60 ml/min/1.73 sqM) Est GFR (CKD-EPI)NonAf (>60 ml/min/1.73 sqM) Glucose (74-99) mg/dL Plasma Lactic Acid Emanuel 0.7 (0.7-2.0) mmol/L Calcium (8.4-10.2) mg/dL Total Bilirubin (0.2-1.3) mg/dL AST (14-36) U/L ALT (4-34) U/L Alkaline Phosphatase (38-126) U/L Total Protein (6.3-8.2) g/dL Albumin (3.5-5.0) g/dL HCG, Quant mIU/mL Urine Color Urine Appearance (Clear) Urine pH (5.0-8.0) Ur Specific [place] (1.001-1.035) Urine Protein (Negative) Urine Glucose (UA) (Negative) Urine Ketones (Negative) Urine Blood (Negative) Urine Nitrite (Negative) Urine Bilirubin (Negative) Urine Urobilinogen (<2.0) mg/dL Ur Leukocyte Esterase (Negative) Urine RBC (0-5) /hpf Urine WBC (0-5) /hpf Urine WBC Clumps (None) /hpf Ur Squamous Epith Cells (0-4) /hpf Urine Bacteria (None) /hpf Hyaline Casts (0-2) /lpf Urine Mucus (None) /hpf Disposition Clinical Impression: Kidney stone on right side, Intractable pain, UTI (urinary tract infection), Nausea & vomiting, Disposition: ADMITTED IP TO THIS [facility] Condition: Stable Decision Date: 09/03/20 Decision Time: 16:56
--- NOTE | 2020-09-03 15:12 | US ---
EXAMINATION TYPE: US kidneys/renal and bladder DATE OF EXAM: 09/03/2020 COMPARISON: CLINICAL HISTORY: Right kidney stone, increased pain. Right side pain with hx of hydronephrosis and k idney stone. Patient states she is scheduled for surgery next week but pain and been getting worse. EXAM MEASUREMENTS: Right Kidney: 12.7 x 6.1 x 6.4 cm Left Kidney: 11.5 x 4.6 x 4.7 cm Right Kidney: Hydronephrosis visualized. Previous seen cystic lesion = 3.9 x 3.8 x 3.8 cm. Unable t o visualize obstructing stone. Left Kidney: No hydronephrosis or masses seen Bladder: distended, anechoic Left jet visualized IMPRESSION: 1. Right hydronephrosis.
[2020-09-03] MEDS ORDERED: ACETAMINOPHEN TAB 325 MG TAB PO PRN (16:52)
[2020-09-03] MEDS ORDERED: NALOXONE 0.4 MG/ML 1 ML VIAL IV PRN (16:52)
[2020-09-03] MEDS ORDERED: cefTRIAXone IN SWFI 1,000 MG/10 ML SYRINGE IVP STA (16:52)
[2020-09-03] MEDS ORDERED: MORPHINE SULFATE 2 MG/ML SYRINGE IV PRN (16:52)
[2020-09-03] MEDS ORDERED: METOCLOPRAMIDE 5 MG/ML 2 ML VIAL IVP PRN (16:54)
[2020-09-03] MEDS ORDERED: SODIUM CHLORIDE 0.9% 1,000 ML IV SCH (17:00)
--- NOTE | 2020-09-03 18:50 | P.GSCN ---
History of Present Illness Consult date: 09/03/20 History of present illness: Pleasant 30-year-old female known to our office, for a right ureteral calculus. The patient is a proximally 6 weeks with her third child. Her to her she developed severe colic and was at [facility] where apparent 7 mm proximal ureteral stone on the right was identified. Patient was seen on our office. Because of intermittent colic. She was set up to have a right ureteroscopy and stone manipulation next week if her pain did not get better. She has had 3 days this persistent colic on the right side nausea and vomiting and unable to keep any fluids down. She also has had bladder discomfort. She has a urinalysis looks infected. She came to the emergency room and because of these above findings she was admitted to the hospital under the obstetrics service. We were consult. Fortunately she has no fever. Her white count was mildly elevated. Her urine looks infected. This is the patient's first stone. She had an ultrasound today showing right-sided hydronephrosis. Review of Systems All systems: negative Past Medical History Past Medical History: Asthma Additional Past Medical History / Comment(s): kidney stones History of Any Multi-Drug Resistant Organisms: None Reported Past Surgical History: Section Additional Past Surgical History / Comment(s): KAYE AGUILARE 2019 Past Anesthesia/Blood Transfusion Reactions: Previous Problems w/ Anesthesia Additional Past Anesthesia/Blood Transfusion Reaction / Comm: ITCHING POST OP AND GIVEN BENADRYL Past Psychological History: No Psychological Hx Reported Smoking Status: Never smoker Past Alcohol Use History: None Reported Past Drug Use History: None Reported - Past Family History Mother Family Medical History: Congestive Heart Failure (CHF), Hypertension Father Family Medical History: No Reported History Medications and Allergies Home Medications Medication Instructions Recorded Confirmed Type Acetaminophen Tab [Tylenol Tab] 1,000 mg PO Q6HR PRN 09/03/20 09/03/20 History HYDROcodone/APAP 5-325MG [[place] 2 tab PO Q6H PRN 09/03/20 09/03/20 History 5-325] Allergies Allergy/AdvReac Type Severity Reaction Status Date / Time No Known Allergies Allergy Verified 09/03/20 17:58 Surgical - Exam Vital Signs Temp Pulse Resp BP Pulse Ox 98.4 F 99 18 136/96 99 09/03/20 13:43 09/03/20 13:43 09/03/20 13:43 09/03/20 13:43 09/03/20 13:43 - General Mild distress well developed, well nourished - Eyes PERRL - ENT no hearing loss - Neck trachea midline - Respiratory normal expansion, normal respiratory effort - Cardiovascular Rhythm: regular - Abdomen Mild right lower quadrant right flank pain - Integumentary no rash, no growths - Neurologic normal coordination, normal sensation - Musculoskeletal normal posture - Psychiatric oriented to time, oriented to person, oriented to place, speech is normal, memory intact Results - Labs 09/03/20 14:17 09/03/20 14:17 Abnormal Lab Results - Last 24 Hours (Table) 09/03/20 09/03/20 09/03/20 Range/Units 14:17 14:17 14:17 Hct 32.6 L (34.0-46.0) % Neutrophils # 8.7 H (1.3-7.7) k/uL Sodium 133 L (137-145) mmol/L Glucose 100 H (74-99) mg/dL AST 38 H (14-36) U/L ALT 55 H (4-34) U/L Urine Appearance Cloudy H (Clear) Urine Protein Trace H (Negative) Urine Ketones Trace H (Negative) Urine Blood Moderate H (Negative) Ur Leukocyte Esterase Large H (Negative) Urine WBC 139 H (0-5) /hpf Urine WBC Clumps Moderate H (None) /hpf Urine Bacteria Few H (None) /hpf Urine Mucus Occasional H (None) /hpf Diabetes panel 09/03/20 Range/Units 14:17 Sodium 133 L (137-145) mmol/L Potassium 4.5 (3.5-5.1) mmol/L Chloride 103 (98-107) mmol/L Carbon Dioxide 22 (22-30) mmol/L BUN 12 (7-17) mg/dL Creatinine 0.95 (0.52-1.04) mg/dL Glucose 100 H (74-99) mg/dL Calcium 9.0 (8.4-10.2) mg/dL AST 38 H (14-36) U/L ALT 55 H (4-34) U/L Alkaline Phosphatase 73 (38-126) U/L Total Protein 7.2 (6.3-8.2) g/dL Albumin 4.2 (3.5-5.0) g/dL Calcium panel 09/03/20 Range/Units 14:17 Calcium 9.0 (8.4-10.2) mg/dL Albumin 4.2 (3.5-5.0) g/dL Pituitary panel 09/03/20 Range/Units 14:17 Sodium 133 L (137-145) mmol/L Potassium 4.5 (3.5-5.1) mmol/L Chloride 103 (98-107) mmol/L Carbon Dioxide 22 (22-30) mmol/L BUN 12 (7-17) mg/dL Creatinine 0.95 (0.52-1.04) mg/dL Glucose 100 H (74-99) mg/dL Calcium 9.0 (8.4-10.2) mg/dL Adrenal panel 09/03/20 Range/Units 14:17 Sodium 133 L (137-145) mmol/L Potassium 4.5 (3.5-5.1) mmol/L Chloride 103 (98-107) mmol/L Carbon Dioxide 22 (22-30) mmol/L BUN 12 (7-17) mg/dL Creatinine 0.95 (0.52-1.04) mg/dL Glucose 100 H (74-99) mg/dL Calcium 9.0 (8.4-10.2) mg/dL Total Bilirubin 0.8 (0.2-1.3) mg/dL AST 38 H (14-36) U/L ALT 55 H (4-34) U/L Alkaline Phosphatase 73 (38-126) U/L Total Protein 7.2 (6.3-8.2) g/dL Albumin 4.2 (3.5-5.0) g/dL Assessment and Plan Assessment: Impression: Right ureteral calculus by history and previous computed tomography scan. Persistent right ureteral colic with hydronephrosis. Urinary tract infection. Active . Recommendations: I had a lengthy discussion with this patient about treatment options given that she is 6 weeks . Initially we want to try to avoid any radiation. There is obviously a risk with an anesthetic however the persistent colic and requirement her narcotics also carries a risk. The fact that her urine looks infected makes me less interested in doing any ureteroscopic manipulation at this point in time. The persistence of the colic the most appropriate treatment would be to place a double-J catheter on the right side to relieve the colic area and we then can make sure her infection is under control. At a second sitting Dr. Moya and then do a ureteroscopic manipulation the right side which will be much easier having had a stent in place. Discussed this with anesthesia and the plan will be to do a sedative anesthetic tomorrow. She understands and consents to this. She understands the risk associated with this in both her and her . Time with Patient: Greater than 30
[2020-09-03] MEDS ORDERED: HYDROmorphone 0.5 MG/0.5 ML SYRINGE IVP PRN (23:48)
[2020-09-04] MEDS ORDERED: IV FLUID CONTINUATION 1,000 ML IV ONE ×2 (08:37)
[2020-09-04] MEDS ORDERED: PROPOFOL 10 MG/ML 20 ML VIAL IV ONE (08:59)
--- NOTE | 2020-09-04 09:38 | P.OP ---
Date of Procedure: 09/04/20 Preoperative Diagnosis: Right ureteral calculus, urinary tract infection Postoperative Diagnosis: Same Procedure(s) Performed: Cystoscopy, right ureteroscopy with stent placement 6 x 24 Anesthesia: MAC Surgeon: Stefan Montes De Oca Estimated Blood Loss (ml): 0 Pathology: none sent Condition: stable Disposition: PACU Indications for Procedure: The patient is 30. She is 6 weeks . She prior to her had a known upper right ureteral stone. She's been attempting to pass it but has been unable to do so. She was set up next week with to have a ureteroscopy and stone removal on the right side. She's been having severe colic for the last 3 days. She came to the emergency room. Her urine looks infected. She was admitted to the hospital for IV fluids and antibiotics and further urologic care. I reviewed the situation with the patient and the plan is to place a double-J catheter to relieve the obstruction, control the pain I'll treating the infection. A later date we will deal for stone. The risks and complications including spontaneous has been explained and understood and accepted. She understands we will not use any radiation for this procedure if possible.. Description of Procedure: The patient is brought to the operating suite. She's placed on the operating table supine position. She's given some minimal sedation. She's placed lithotomy position with sterile prep and drape. Cystoscopy with a Foroblique lens and 22-[place] sheath identifies a normal urethra. There is minimal cystitis on the floor the bladder. Both ureteral orifices are normal. An 0-35 wires passed up the right ureteral orifice but it lodges in the mid ureter consistent with high-grade obstruction stone. I eventually I'm able to pass the wire by the stone and then attempted to pass a double-J catheter but I am unable to pass a double-J catheter over the wire. I then attempted to pass a 6-[place] open-ended catheter over the wire but meet resistance in the mid ureter on the right side. I then passed a semirigid ureteroscope up to the ureter and there is a fair amount of edema where I am meeting resistance. I passed the wire through the ureteroscope and make sure that I go beyond the stone and I do. I then pass an open-ended catheter over the wire up into the collecting system and get urine. Thus the stone has probably dislodged. I removed the open-ended catheter and passed a 6 x 24 double-J catheter over the wire in the right ureter and it appears to pass easily up the ureter and coil in the bladder. Impression: successful placement of double-J catheter requiring ureteroscopy due to an impacted right ureteral stone. The patient will be observed in the hospital until we get the culture results back and then treated appropriately with antibiotics. Then she can have a right ureteroscopy with laser lithotripsy at later date.
[2020-09-04] MEDS ORDERED: SODIUM CHLORIDE 0.9% 1,000 ML IV ONE (10:06)
[2020-09-04 10:39] VITALS: RESP 18; TEMP 98.3
[2020-09-04 10:53] VITALS: BP 117/77; PULSE 92
--- NOTE | 2020-09-04 11:54 | P.HPOB ---
History of Present Illness H&P Date: 09/04/20 Chief Complaint: 5+ weeks , intractable pain, nephrolithiasis The patient is a 30-year-old 3 para 2001 who has recently been found to be with rising beta hCGs that are not yet at the level for documentation of a viable intrauterine , proximally 5-6 weeks. She has a known kidney stone and, for the last several days, has had intractable pain and been unable to tolerate any liquids or solids by mouth. She was scheduled for ureteroscopy with removal of the stone on September 09 but, instead, reported to the emergency room last evening secondary to her significant pain and nausea. She was found with a urinalysis consistent with urinary tract infection but no signs of systemic illness with a normal white count. She was admitted through the emergency room to [place] secondary to though her main problem was urologic in nature. She does report that she had some spotting only on toilet paper over the last several days but was unclear whether it was vaginal or from her urinary condition. She underwent placement of a double-J stent this morning and has had complete resolution of her pain and symptoms. She has not yet tolerated regular diet. Obstetrical history: 3 para 2001 with 2 term sections. Current statistics are listed in history of present illness. She does have an appointment both for obstetrical intake and new OB appointment over the course of the next month or so. She has not had an ultrasound to document viable intrauterine at this point and beta hCG in the emergency room last evening was still below 2000. Gynecologic history: Unremarkable. Review of Systems Review of systems is confined to history of present illness. Past Medical History Past Medical History: Asthma Additional Past Medical History / Comment(s): kidney stones History of Any Multi-Drug Resistant Organisms: None Reported Past Surgical History: Section Additional Past Surgical History / Comment(s): KAYE DECKER 2018 Past Anesthesia/Blood Transfusion Reactions: Previous Problems w/ Anesthesia Additional Past Anesthesia/Blood Transfusion Reaction / Comment(s): ITCHING POST OP AND GIVEN BENADRYL Past Psychological History: No Psychological Hx Reported Smoking Status: Never smoker Past Alcohol Use History: None Reported Past Drug Use History: None Reported - Past Family History Mother Family Medical History: Congestive Heart Failure (CHF), Hypertension Father Family Medical History: No Reported History Medications and Allergies Home Medications Medication Instructions Recorded Confirmed Type Acetaminophen Tab [Tylenol Tab] 1,000 mg PO Q6HR PRN 09/03/20 09/03/20 History HYDROcodone/APAP 5-325MG [[place] 2 tab PO Q6H PRN 09/03/20 09/03/20 History 5-325] Allergies Allergy/AdvReac Type Severity Reaction Status Date / Time No Known Allergies Allergy Verified 09/03/20 17:58 Exam Vital Signs Temp Pulse Pulse Pulse Resp BP BP 09/04/20 10:53 92 18 117/77 09/04/20 10:36 97 18 111/76 09/04/20 10:24 98.3 F 98 18 123/76 09/04/20 10:05 88 17 114/66 09/04/20 09:48 85 16 111/60 09/04/20 09:33 97.9 F 92 16 129/68 09/04/20 08:23 98.9 F 109 H 18 114/73 09/04/20 08:00 98.9 F 109 H 18 114/73 09/04/20 03:00 89 18 105/65 09/03/20 20:00 98.2 F 72 16 112/72 09/03/20 17:42 98.4 F 88 18 115/78 09/03/20 17:09 76 18 105/76 09/03/20 13:43 98.4 F 99 18 136/96 Pulse Ox 09/04/20 10:53 97 09/04/20 10:36 99 09/04/20 10:24 97 09/04/20 10:05 100 09/04/20 09:48 100 09/04/20 09:33 98 09/04/20 08:23 96 09/04/20 08:00 96 09/04/20 03:00 96 09/03/20 20:00 98 09/03/20 17:42 100 09/03/20 17:09 98 09/03/20 13:43 99 Intake and Output 09/03/20 09/04/20 09/04/20 22:59 06:59 14:59 Intake Total 400 700 Output Total 1400 925 Balance 400 -1400 -225 Intake: IV 700 Oral 400 Output: Urine 1400 925 Other: Voiding Method Toilet # Voids 4 Weight 96.162 kg In general, this is a well-developed, mildly obese white female in no acute distress. Her heart has a regular rhythm and rate without murmur. Her lungs are clear to auscultation bilaterally in all ignacio. Her abdomen is nondis tended, has normal active bowel sounds, soft, nontender, and without any palpable masses. Her extremities are without any cyanosis, clubbing, or edema and are nontender to palpation bilaterally. Digital cervical examination/pelvic examination is deferred. Results Result Diagrams: 09/03/20 14:17 09/03/20 14:17 Abnormal Lab Results - Last 24 Hours (Table) 09/03/20 09/03/20 09/03/20 Range/Units 14:17 14:17 14:17 Hct 32.6 L (34.0-46.0) % Neutrophils # 8.7 H (1.3-7.7) k/uL Sodium 133 L (137-145) mmol/L Glucose 100 H (74-99) mg/dL AST 38 H (14-36) U/L ALT 55 H (4-34) U/L Urine Appearance Cloudy H (Clear) Urine Protein Trace H (Negative) Urine Ketones Trace H (Negative) Urine Blood Moderate H (Negative) Ur Leukocyte Esterase Large H (Negative) Urine WBC 139 H (0-5) /hpf Urine WBC Clumps Moderate H (None) /hpf Urine Bacteria Few H (None) /hpf Urine Mucus Occasional H (None) /hpf Microbiology - Last 24 Hours (Table) 09/03/20 14:17 Urine Culture - Preliminary Urine,Voided Assessment and Plan (1) Kidney stone on right side Current Visit: Yes Status: Acute Code(s): N20.0 - CALCULUS OF KIDNEY SNOMED Code(s): 12644855 (2) Current Visit: Yes Status: Acute Code(s): Z34.90 - ENCNTR FOR SUPRVSN OF NORMAL , UNSP, UNSP TRIMESTER SNOMED Code(s): 70786559 Plan: The patient was admitted for further treatment regarding her nephrolithiasis. She was kept with nothing by mouth overnight and provided with IV pain control. Hydration was carried out as well. She was taken this morning for placement of her double-J stent which was successful and unremarkable in nature. She will continue to be observed until tolerating a regular diet. She has received 2 doses of IV Rocephin for her urinary tract infection at this point.
--- NOTE | 2020-09-04 11:58 | P.DS ---
Providers Date of admission: 09/03/20 16:45 Expected date of discharge: 09/04/20 Attending physician: Jamar Corona Consults: 09/03/20 16:52 Consult Physician Stat Consulting Provider: Stefan Montes De Oca Consult Reason/Comments: Right-sided kidney stone, intractable pain, UTI Do you want consulting provider notified?: Already Contacted Primary care physician: Xaio Ramos - Discharge Diagnosis(es) (1) Kidney stone on right side Current Visit: Yes Status: Acute (2) Current Visit: Yes Status: Acute Hospital Course: The patient is a 30-year-old 3 para 2001 admitted with intractable pain along with nausea and vomiting for approximately 3-4 days having been unable to tolerate anything by mouth. She has a known right kidney stone that was scheduled to be removed on September 09. Pain and nausea as noted above precipitated her presentation to the emergency room where she was deemed stable for discharge. She is additionally found with the retracting infection at that time and started on Rocephin intravenously. She was kept with nothing by mouth overnight and taken for placement of a double-J stent this morning which was successful and unremarkable in nature. She has at this time no ongoing symptoms and feels remarkably better from presentation. She has not yet had solid food but is tolerating liquids at this time. Assuming she tolerates regular diet, she will be discharged home today on hospital day #2 to follow-up with [facility] urology at the beginning of this week for further disposition from a urologic standpoint. She otherwise has appointments already scheduled with our office for obstetrical intake and first OB visit. Instructions were to call for any significantly increasing symptoms. She was also advised that she may see blood in her urine secondary to the placement of the stent. She will continue to have oral antibiotics and was provided with a prescription for Keflex 500 mg 3 times a day for 1 week pending the outcome of the urine culture. She otherwise was she is only [id number] analgesic pain medications, specifically Tylenol. She understood her instructions and will follow up as noted above. Procedures: #1. IV hydration #2. IV pain control #3. Placement of double-J ureteral stent Patient Condition at Discharge: Stable Plan - Discharge Summary New Discharge Prescriptions: No Action HYDROcodone/APAP 5-325MG [[place] 5-325] 2 tab PO Q6H PRN PRN Reason: Pain Acetaminophen Tab [Tylenol Tab] 1,000 mg PO Q6HR PRN PRN Reason: Pain Discharge Medication List Acetaminophen Tab [Tylenol Tab] 1,000 mg PO Q6HR PRN 09/03/20 [History] HYDROcodone/APAP 5-325MG [[place] 5-325] 2 tab PO Q6H PRN 09/03/20 [History] Follow up Appointment(s)/Referral(s): Xiao Ramos MD [Primary Care Provider] - 1-2 days Jared Ramos MD [STAFF PHYSICIAN] - 3 Days Discharge Disposition: HOME SELF-CARE
== END 2020-09-04 13:30 | disposition home or self-care (01) ==
LOC: EC 13:36 → 6PED 16:45 → INTOOBSV 16:45 → UNDODISIN 09-04 13:30
PROVIDERS: ADMIT Obstetrics & Gynecology; ATTEND Obstetrics & Gynecology
DX: O26.831 Pregnancy related renal disease, first trimester (principal); N13.6 Pyonephrosis; O23.41 Unspecified infection of urinary tract in pregnancy, first trimester; Z3A.01 Less than 8 weeks gestation of pregnancy; O23.11 Infections of bladder in pregnancy, first trimester; J45.909 Unspecified asthma, uncomplicated; Z98.891 History of uterine scar from previous surgery; Z90.49 Acquired absence of other specified parts of digestive tract; Z82.49 Family history of ischemic heart disease and other diseases of the circulatory system; Z79.899 Other long term (current) drug therapy
CPT/HCPCS: 96376; 96361; 96374; 96375; 99285; 36415; 80053; 83605; 85025; 81001; 84702; 87086; 76770; 52332; G0378 ×2; C2625; C1769; C1758; J2765; J0696 ×2; J2270; J2704; J1170

== ENCOUNTER → 2020-09-16 | Outpatient (CLI) | payer OTHER ==
[~2020-09-16] MED LIST changes: -DEXAMETHASONE SOD PHOSPHATE 10 MG/ML 1 ML VIAL IV ONE; -HEPARIN SODIUM,PORCINE 5,000 UNIT/ML 1 ML VIAL SQ ONE; -LACTATED RINGERS 1,000 ML IV SCH; +METHOTREXATE SODIUM (PF) 25 MG/ML 2 ML VIAL IM NR; -MIDAZOLAM 2 MG/2 ML VIAL IV PRN; -ONDANSETRON 4 MG/2 ML VIAL IVP ONE; -SCOPOLAMINE 1.5MG/72HR PATCH TRANSDERM ONE
[2020-09-16 10:16] VITALS: BP 133/64; PULSE 80; RESP 16; TEMP 98.3
== END | disposition home or self-care (01) ==
LOC: PROCWHC3 09:50
PROVIDERS: ATTEND Obstetrics & Gynecology
DX: O00.109 Unspecified tubal pregnancy without intrauterine pregnancy (principal); Z3A.00 Weeks of gestation of pregnancy not specified
CPT/HCPCS: 96402; J9260

== ENCOUNTER → 2020-09-16 | Outpatient (CLI) | payer OTHER ==
[2020-09-16 10:08] LABS: Basophils % (A) 1 %; Eosinophils # (A) 0.3 k/uL (0-0.7); Eosinophils % (A) 4 %; HGB 11.5 gm/dL (11.4-16.0); Lymphocytes # (A) 2.2 k/uL (1.0-4.8); Lymphocytes % (A) 30 %; MCH 28.7 pg (25.0-35.0); MCHC 33.7 g/dL (31.0-37.0); MCV 85.1 fL (80.0-100.0); Mean Platelet Volume 6.5; Monocytes # (A) 0.3 k/uL (0-1.0); Monocytes % (A) 5 %; Neutrophils # (A) 4.2 k/uL (1.3-7.7); Neutrophils % (A) 59 %; Platelet Count 329 k/uL (150-450); RDW 13.7 % (11.5-15.5); WBC 7.2 k/uL (3.8-10.6)
[2020-09-16 17:19] LABS: African American GFR (CKD) 113.9 (60.0-200.0); Non-African American GFR(CKD) 98.2 (60.0-200.0)
[2020-09-16 17:43] LABS: HCG,Quantitative Serum 17.4 mIU/mL
== END | disposition home or self-care (01) ==
LOC: LABWHC1 09:15
PROVIDERS: ATTEND Obstetrics & Gynecology
DX: O00.109 Unspecified tubal pregnancy without intrauterine pregnancy (principal)
CPT/HCPCS: 36415; 82565; 84450; 84460; 84520; 84702; 85025

== ENCOUNTER → 2020-09-19 | Outpatient (CLI) | payer OTHER | END | disposition home or self-care (01) | LOC: LABMAIN 17:46 | PROVIDERS: ATTEND Obstetrics & Gynecology | DX: O00.109 Unspecified tubal pregnancy without intrauterine pregnancy (principal) | CPT/HCPCS: 36415; 84702 ==

== ENCOUNTER → 2020-09-22 | Outpatient (CLI) | payer OTHER ==
[2020-09-22 11:42] LABS: HCT 34.7 % (34.0-46.0); HGB 11.3 gm/dL (11.4-16.0); MCH 27.8 pg (25.0-35.0); MCHC 32.4 g/dL (31.0-37.0); MCV 85.6 fL (80.0-100.0); Platelet Count 294 k/uL (150-450); RBC 4.05 m/uL (3.80-5.40); RDW 14.3 % (11.5-15.5)
[2020-09-22 20:24] LABS: African American GFR (CKD) 113.9 (60.0-200.0); Non-African American GFR(CKD) 98.2 (60.0-200.0)
[2020-09-22 20:31] LABS: HCG,Quantitative Serum 2.8 mIU/mL
== END | disposition home or self-care (01) ==
LOC: LABWHC1 10:46
PROVIDERS: ATTEND Obstetrics & Gynecology
DX: O00.109 Unspecified tubal pregnancy without intrauterine pregnancy (principal); Z3A.00 Weeks of gestation of pregnancy not specified
CPT/HCPCS: 36415; 82565; 84450; 84460; 84520; 84702; 85027

== ENCOUNTER → 2020-09-27 | Outpatient (CLI) | payer OTHER ==
[2020-09-27 12:43] LABS: Basophils % (A) 0 %; Eosinophils # (A) 0.1 k/uL (0-0.7); Eosinophils % (A) 1 %; HCT 32.7 % (34.0-46.0); HGB 10.8 gm/dL (11.4-16.0); Lymphocytes # (A) 0.6 k/uL (1.0-4.8); Lymphocytes % (A) 9 %; MCH 28.1 pg (25.0-35.0); MCV 85.4 fL (80.0-100.0); Mean Platelet Volume 6.6; Monocytes # (A) 0.5 k/uL (0-1.0); Monocytes % (A) 8 %; Neutrophils % (A) 79 %; Platelet Count 255 k/uL (150-450); RBC 3.83 m/uL (3.80-5.40); WBC 6.3 k/uL (3.8-10.6)
[2020-09-27 13:03] LABS: African American GFR (CKD) >90 (>60 ml/min/1.73 sqM); Anion Gap 7 mmol/L; Blood Urea Nitrogen 9 mg/dL (7-17); Calcium 8.9 mg/dL (8.4-10.2); Carbon Dioxide 26 mmol/L (22-30); Chloride 104 mmol/L (98-107); Glucose 107 mg/dL (74-99); Non-African American GFR(CKD) >90 (>60 ml/min/1.73 sqM); Potassium 4.1 mmol/L (3.5-5.1); Sodium 137 mmol/L (137-145)
[2020-09-27 13:22] LABS: Appearance,Urine Cloudy (Clear); Bilirubin,Urine Negative (Negative); Blood,Urine Small (Negative); Color,Urine Yellow; Glucose,Urine (UA) Negative (Negative); Hyaline Casts,Urine 1 /lpf (0-2); Ketones,Urine Negative (Negative); Leukocyte Esterase,Urine Large (Negative); Mucus,Urine Rare /hpf; Nitrite,Urine Negative (Negative); PH, Urine 6.5 (5.0-8.0); Protein,Urine 1+ (Negative); RBC,Urine 12 /hpf (0-5); Specific Gravity,Urine 1.023 (1.001-1.035); Squamous Epithelial Cell,Urine 9 /hpf (0-4); Urobilinogen,Urine <2.0 mg/dL (<2.0); WBC,Urine 87 /hpf (0-5)
== END | disposition home or self-care (01) ==
LOC: LABPAT 10:11
PROVIDERS: ATTEND Urology
DX: Z01.818 Encounter for other preprocedural examination (principal); N20.1 Calculus of ureter; R31.29 Other microscopic hematuria
CPT/HCPCS: 80048; 81001; 85025; 87086

== ENCOUNTER 2020-10-04 09:50 | Day surgery (SDC) | payer OTHER ==
[2020-09-28 17:36] VITALS: BMI 38.0
[~2020-10-04 09:50] MED LIST changes: +DEXAMETHASONE SOD PHOSPHATE 4 MG/ML 1 ML VIAL IV ONE; +HYDROmorphone 0.5 MG/0.5 ML SYRINGE IVP PRN; +LACTATED RINGERS 1,000 ML IV SCH; +LIDOCAINE 1% (10MG/ML) FOR IV START INTRADERMA PRN; -METHOTREXATE SODIUM (PF) 25 MG/ML 2 ML VIAL IM NR; +ONDANSETRON 4 MG/2 ML VIAL IVP ONE; +SCOPOLAMINE 1.5MG/72HR PATCH TRANSDERM ONE
--- NOTE | 2020-10-04 10:13 | XR ---
KUB HISTORY: Kidney stones Frontal KUB and 2 images Double-J stent is present on the right. Scattered calcifications are present within the pelvis. There is no evident pneumoperitoneum or bowel obstruction. Bone mineralization is normal. IMPRESSION: Post instrumentation changes
[2020-10-04 10:33] VITALS: RESP 16
--- NOTE | 2020-10-04 11:52 | P.HPIHPCON ---
History of Present Illness H&P Date: 10/04/20 This is 30-year-old female history of right-sided ureteral stone. She is status post stent placement. Today she presents for definitive stone management. Discussed with her the the option of doing an ESWL versus ureteroscopy. Discussed with her the risk which includes but not limited to bleeding, infection, injury to the ureter. She understood all the risk and agreed to proceed with right-sided ureteroscopy, with holmium laser lithotripsy and stone basketing and possible stent placement Consent for Procedure: I have explained the operation/procedure to the patient, including the risks, benefits, side effects, alternative therapies (including not receiving the p roposed treatment or service), the likelihood of the patient achieving his/her goals, and potential recuperation problems for the procedure/sedation/analgesia, as well as any blood products, if indicated. I also explained to the patient the risks, benefits and side effects of the alternatives, as well as the risks related to not receiving the proposed procedure, care, treatment, or services. Past Medical History Past Medical History: Asthma Additional Past Medical History / Comment(s): kidney stones. HAD MISCARRIAGE IN AUG 2020 History of Any Multi-Drug Resistant Organisms: None Reported Past Surgical History: Section, Cholecystectomy Additional Past Surgical History / Comment(s): , RT URETERAL STENT Past Anesthesia/Blood Transfusion Reactions: Previous Problems w/ Anesthesia Additional Past Anesthesia/Blood Transfusion Reaction / Comment(s): ITCHING POST OP AND GIVEN BENADRYL Smoking Status: Never smoker - Past Family History Mother Family Medical History: Congestive Heart Failure (CHF), Hypertension Father Family Medical History: No Reported History Medications and Allergies Home Medications Medication Instructions Recorded Confirmed Type Acetaminophen Tab [Tylenol Tab] 1,000 mg PO Q6HR PRN 09/03/20 09/28/20 History HYDROcodone/APAP 5-325MG [[place] 2 tab PO Q6H PRN 09/03/20 09/28/20 History 5-325] Cetirizine HCl [Zyrtec] 10 mg PO DAILY 09/28/20 09/28/20 History Allergies Allergy/AdvReac Type Severity Reaction Status Date / Time sulfamethoxazole Allergy Rash/Hives Verified 10/04/20 10:17 [From Bactrim] trimethoprim [From Bactrim] Allergy Rash/Hives Verified 10/04/20 10:17 Surgical - Exam Vital Signs Temp Pulse Resp BP Pulse Ox 98.5 F 81 16 121/59 98 10/04/20 10:32 10/04/20 10:32 10/04/20 10:32 10/04/20 10:32 10/04/20 10:32 - General well developed, well nourished, no distress, no pain - Respiratory normal expansion, normal respiratory effort - Abdomen Abdomen: soft, non tender - Psychiatric oriented to time, oriented to person, oriented to place Assessment and Plan Assessment: 30-year-old female right-sided ureteral stone -OR for right-sided ureteroscopy, with holmium laser lithotripsy and stone basketing and possible stent exchange
[2020-10-04] MEDS ORDERED: SUCCINYLCHOLINE CHLORIDE 100 MG/5 ML SYR IV ONE (12:12)
[2020-10-04] MEDS ORDERED: PROPOFOL 10 MG/ML 20 ML VIAL IV ONE (12:12)
[2020-10-04] MEDS ORDERED: LIDOCAINE 1% INJ 10MG/ML (20 ML MDV) ONE (12:12)
[2020-10-04] MEDS ORDERED: fentaNYL (PF) 50 MCG/ML 2 ML AMP ONE (12:12)
[2020-10-04] MEDS ORDERED: MIDAZOLAM 2 MG/2 ML VIAL ONE (12:12)
--- NOTE | 2020-10-04 13:01 | P.OP ---
Date of Procedure: 10/04/20 Preoperative Diagnosis: Right ureteral stone Postoperative Diagnosis: Same Procedure(s) Performed: Cystoscopy, right ureteroscopy, holmium laser lithotripsy, stone basketing and stent removal Implants: None Anesthesia: GRACIA Surgeon: Jared Ramos Estimated Blood Loss (ml): 1 Pathology: other (Right ureteral stone) Condition: stable Disposition: PACU Indications for Procedure: This is 30-year-old female history of right-sided ureteral stone. She is status post stent placement. Today she presents for definitive stone management. Discussed with her the the option of doing an ESWL versus ureteroscopy. Discussed with her the risk which includes but not limited to bleeding, infection, injury to the ureter. She understood all the risk and agreed to proceed with right-sided ureteroscopy, with holmium laser lithotripsy and stone basketing and possible stent placement Operative Findings: Right proximal stone Description of Procedure: Patient was brought to the operating room, general anesthesia was induced. She was prepped and draped in sterile fashion placed in her dorsal lithotomy position. Cystoscopy fitted with a 21-[place] Citizen sheath was inserted per urethra. Cystoscopy was performed showed no abnormality within the bladder. Attention was then carried to the right ureteral orifice stent was grasped using the stent grasper and removed. Next a semirigid ureteroscope was inserted per urethra and advanced up the right ureteral orifice. A stone was encountered in the proximal ureter. Using the holmium laser the stone was fragmented into smaller fragments. Sizable fragments were removed using the stones basket. Repeat ureteroscopy demonstrated no sizable fragments or additional stones. At this time the ureteroscope was withdrawn with the wire in place. Next a flexible ureteroscope was passed over the wire under fluoroscopy into the kidney. Renoscopy was performed which showed a small stone in the lower pole that was fragmented. But no additional stones or injury to the kidney. Ureteroscopy was performed showed no injury to the ureter or ureteral stone. The bladder was emptied at the end of the case. The patient tolerated procedure well was taken to PACU in stable condition
[2020-10-04 13:20] VITALS: TEMP 97.5
[2020-10-04 14:38] VITALS: BP 112/73; PULSE 70
--- NOTE | 2020-10-04 15:32 | FL ---
EXAMINATION TYPE: FL guidance operating room DATE OF EXAM: 10/04/2020 FLUOROSCOPY Fluoroscopy time of 1 seconds was used during right-sided cystoscopy/lithotripsy. 1 image/s document /s the procedure.
== END 2020-10-04 14:49 | disposition home or self-care (01) ==
LOC: OR 09:50
PROVIDERS: ATTEND Urology
DX: N20.2 Calculus of kidney with calculus of ureter (principal); J45.909 Unspecified asthma, uncomplicated; Z79.899 Other long term (current) drug therapy; Z88.2 Allergy status to sulfonamides; Z90.49 Acquired absence of other specified parts of digestive tract; Z98.891 History of uterine scar from previous surgery; Z87.442 Personal history of urinary calculi; Z82.49 Family history of ischemic heart disease and other diseases of the circulatory system
CPT/HCPCS: 81025; 82365; 74018; 52353; C1758; C1769; J2250; J1100; J0690; J2405; J2001; J3010; J0330; J2704

== ENCOUNTER 2021-11-28 07:46 | Emergency (ER) | payer OTHER ==
[2021-11-28] MEDS ORDERED: ONDANSETRON 4 MG/2 ML VIAL IVP STA (08:30)
[2021-11-28] MEDS ORDERED: SODIUM CHLORIDE 0.9% 1,000 ML IV STA (08:30)
[2021-11-28] MEDS ORDERED: KETOROLAC 15 MG/ML 1 ML VIAL IVP STA (08:30)
[2021-11-28] MEDS ORDERED: diphenhydrAMINE 50 MG/ML 1 ML VIAL IVP STA (08:32)
--- NOTE | 2021-11-28 08:36 | ED ---
General Adult HPI - General Chief complaint: Headache Stated complaint: headache Time Seen by Provider: 11/28/21 08:13 Source: patient Mode of arrival: ambulatory Limitations: no limitations - History of Present Illness Initial comments: Dictation was produced using [employer] dictation software. please excuse any grammatical, word or spelling errors. Chief Complaint: 31-year-old female presents emergency department for headache History of Present Illness: 1-year-old female she reports that she has significant migraine history. She does not see a headache specialist. She states that usually around once a month she gets headache. Normally they're throbbing into her bitemporal areas. 10 days ago she tested positive for COVID-19. She's been symptomatic for approximately 2 weeks. Patient states she's had a consistent headache since then. States it feels like it's on the top of her head as if there was a cast iron junior sitting on her head. She tried taking Excedrin with very minimal relief. Denies any numbness and paresthesias to the arms or legs. Patient denies any extremity numbness or tingling. She does feel like her arms are heavy but does not have any weakness. She does report mild neck stiffness. She also reports associated dizziness and lightheadedness. The ROS documented in this emergency department record has been reviewed and confirmed by me. Those systems with pertinent positive or negative responses have been documented in the HPI. All other systems are other negative and/or noncontributory. PHYSICAL EXAM: General Impression: Alert and oriented x3, not in acute distress HEENT: Normocephalic atraumatic, extra-ocular movements intact, pupils equal and reactive to light bilaterally, mucous membranes moist. Cardiovascular: Heart regular rate and rhythm Chest: Able to complete full sentences, no retractions, no tachypnea Abdomen: abdomen soft, non-tender, non-distended, no organomegaly Musculoskeletal: Pulses present and equal in all extremities, no peripheral edema Motor: no focal deficits noted Neurological: CN II-XII grossly intact, no focal motor or sensory deficits noted, negative Brudzinski, negative Kernig sign, negative Lhermitte sign Skin: Intact with no visualized rashes Psych: Normal affect and mood ED course: 31-year-old female presents to the emergency department for acute on chronic headache. Signs upon arrival are within acceptable limits. Patient's full. The bedside. Should not show any signs of neurologic distress per she is well-appearing. Urine is negative. Computed tomography scan of the brain shows no acute processes. Patient reevaluated at bedside at 1040 and found to be stable medical condition. Patient reports cigarettes a resolution of her headache. Patient be discharged and advised follow-up with primary care doctor. - Related Data Home Medications Medication Instructions Recorded Confirmed Acetaminophen Tab [Tylenol Tab] 1,000 mg PO Q6HR PRN 09/03/20 09/28/20 HYDROcodone/APAP 5-325MG [[place] 2 tab PO Q6H PRN 09/03/20 09/28/20 5-325] Cetirizine HCl [Zyrtec] 10 mg PO DAILY 09/28/20 09/28/20 Previous Rx's Medication Instructions Recorded Cephalexin [Keflex] 500 mg PO Q8HR 3 Days #9 cap 10/04/20 Ibuprofen 600 mg PO Q6H PRN #30 tab 10/04/20 Allergies Allergy/AdvReac Type Severity Reaction Status Date / Time sulfamethoxazole Allergy Rash/Hives Verified 11/28/21 07:52 [From Bactrim] trimethoprim [From Bactrim] Allergy Rash/Hives Verified 11/28/21 07:52 Review of Systems ROS Statement: Those systems with pertinent positive or pertinent negative responses have been documented in the HPI. ROS Other: All systems not noted in ROS Statement are negative. Past Medical History Past Medical History: Asthma Additional Past Medical History / Comment(s): kidney stones History of Any Multi-Drug Resistant Organisms: None Reported Past Surgical History: Section Additional Past Surgical History / Comment(s): KYAE DECKER 2019 Past Anesthesia/Blood Transfusion Reactions: Previous Problems w/ Anesthesia Additional Past Anesthesia/Blood Transfusion Reaction / Comment(s): ITCHING POST OP AND GIVEN BENADRYL Past Psychological History: No Psychological Hx Reported Smoking Status: Never smoker - Past Family History Mother Family Medical History: Congestive Heart Failure (CHF), Hypertension Father Family Medical History: No Reported History General Exam Limitations: no limitations Course Vital Signs 11/28/21 11/28/21 07:46 08:19 Temperature 97.1 F L 97.9 F Pulse Rate 97 81 Respiratory 18 14 Rate Blood Pressure 93/65 123/75 O2 Sat by Pulse 99 98 Oximetry Medical Decision Making - Lab Data Lab Results 11/28/21 Range/Units 08:30 Urine HCG, Qual Not Detected (Not Detectd) Disposition Clinical Impression: Acute headache Disposition: HOME SELF-CARE Condition: Good Instructions (If sedation given, give patient instructions): Acute Headache (ED) Is patient prescribed a controlled substance at d/c from ED?: No Referrals: Xiao Ramos MD [Primary Care Provider] - 1-2 days
[2021-11-28 08:46] VITALS: TEMP 97.9
--- NOTE | 2021-11-28 10:19 | CT ---
EXAMINATION TYPE: CT brain wo con DATE OF EXAM: 11/28/2021 COMPARISON: None HISTORY: 31 year-old female acute on chronic Headache TECHNIQUE: Examination was done in axial plane without intravenous contrast. Coronal and sagittal r econstructions performed. CT DLP: 1048.4 mGycm Automated exposure control for dose reduction was used. FINDINGS: There is no evidence of acute intracranial hemorrhage, acute ischemic changes, mass, mass-effect, or extra-axial fluid collection. There is no effacement of cerebral sulci or basal subarachnoid cister ns. There is no hydrocephalus. There is no midline shift. Hernández-white matter distinction is preserv ed. Asymmetrically smaller left lateral ventricle, likely congenital variation. Mild mucosal thickening anterior ethmoid air cells. Mastoid air cells well pneumatized. Orbits and gl obes appear intact. IMPRESSION: No acute intracranial abnormality seen.
[2021-11-28 10:51] VITALS: BP 125/74; PULSE 88; RESP 18
== END 2021-11-28 10:51 | disposition home or self-care (01) ==
LOC: EC 07:46
DX: R51.9 Headache, unspecified (principal); J45.909 Unspecified asthma, uncomplicated
CPT/HCPCS: 81025; 70450; 99284; 96374; 96375 ×2; J1200; J2405; J1885

== ENCOUNTER 2022-04-12 20:12 | Emergency (ER) | payer OTHER ==
[2022-04-12 20:39] LABS: Amorphous Sediment,Urine Rare /hpf; Appearance,Urine Cloudy (Clear); Bacteria,Urine Rare /hpf; Bilirubin,Urine Negative (Negative); Blood,Urine Negative (Negative); Color,Urine Yellow; Glucose,Urine (UA) Negative (Negative); Ketones,Urine Negative (Negative); Leukocyte Esterase,Urine Large (Negative); Mucus,Urine Rare /hpf; Nitrite,Urine Negative (Negative); PH, Urine 6.5 (5.0-8.0); Protein,Urine Trace (Negative); RBC,Urine 14 /hpf (0-5); Specific Gravity,Urine 1.022 (1.001-1.035); Squamous Epithelial Cell,Urine 12 /hpf (0-4); Urobilinogen,Urine <2.0 mg/dL (<2.0); WBC,Urine 160 /hpf (0-5)
[2022-04-12] MEDS ORDERED: NITROFURANTOIN MONOHYD/M-CRYST 100 MG CAP PO STA (21:27)
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
[2022-04-12 21:49] VITALS: BP 118/80; PULSE 85; RESP 18; TEMP 98.8
== END 2022-04-12 21:49 | disposition home or self-care (01) ==
LOC: EC 20:12
DX: N30.00 Acute cystitis without hematuria (principal); J45.909 Unspecified asthma, uncomplicated; Z88.2 Allergy status to sulfonamides; Z79.899 Other long term (current) drug therapy; Z79.82 Long term (current) use of aspirin
CPT/HCPCS: 81001; 87086; 99284

== ENCOUNTER → 2022-04-28 | Outpatient (CLI) | payer OTHER ==
--- NOTE | 2022-04-28 09:41 | US ---
EXAMINATION TYPE: US kidneys/renal and bladder DATE OF EXAM: 04/28/2022 COMPARISON: 09/03/2020 CLINICAL HISTORY: Z87.442 Personal history of urinary calculi,R10.2. Patient states having pain and b leeding. EXAM MEASUREMENTS: Right Kidney: 11.3 x 5.0 x 4.2 cm Left Kidney: 11.6 x 4.1 x 4.6 cm Right Kidney: mid cyst- 3.2 x 3.3 x 3.0 cm Left Kidney: No hydronephrosis or masses seen Bladder: distended, anechoic Bilateral Jets seen There is no evidence for hydronephrosis at this point in time. No nephrolithiasis is seen. No solid masses are identified. The urinary bladder is anechoic. Bilateral ureteral jets are seen. IMPRESSION: Simple cyst right kidney.
== END | disposition home or self-care (01) ==
LOC: RADUSWWP 08:48
PROVIDERS: ATTEND Family Medicine
DX: N28.1 Cyst of kidney, acquired (principal); Z87.442 Personal history of urinary calculi
CPT/HCPCS: 76770

== ENCOUNTER → 2022-10-18 | Outpatient (CLI) | payer OTHER ==
--- NOTE | 2022-10-18 10:30 | CT ---
EXAMINATION TYPE: CT abdomen w con CT DLP: 1311 mGycm, Automated exposure control for dose reduction was used. DATE OF EXAM: 10/18/2022 10:11 AM COMPARISON: 02/03/2019 CLINICAL INDICATION:Female, 32 years old with history of K43.2; hernia TECHNIQUE: Axial CT of the abdomen Sagittal and coronal reformats were created on a separate worksta tion. Contrast used:100 mL of Isovue 300 with IV Contrast, Oral contrast used: with Oral Contrast FINDINGS: LOWER CHEST: Unremarkable ABDOMEN LIVER: Unremarkable GALLBLADDER AND BILE DUCTS: The gallbladder is surgically absent. PANCREAS: Unremarkable. SPLEEN: Unremarkable. ADRENAL GLANDS: Unremarkable. KIDNEYS AND URETERS: No evidence of hydronephrosis or renal calculus. Right renal cyst. STOMACH AND BOWEL: No evidence of bowel obstruction. PERITONEUM/RETROPERITONEUM: No evidence of pneumoperitoneum or free fluid. VASCULATURE: No evidence of aortic aneurysm. MUSCULOSKELETAL: No acute osseous abnormalities LYMPH NODES: No gross evidence for lymphadenopathy. SOFT TISSUE/ABDOMINAL WALL: Fat-containing umbilical hernia measuring 9 mm at the neck. No additional abdominal wall hernia is present. IMPRESSION: Fat-containing umbilical hernia. No additional hernias.
== END | disposition home or self-care (01) ==
LOC: RADCTMAIN 09:00
PROVIDERS: ATTEND Surgery Plastic and Reconstructive Surgery
DX: K43.2 Incisional hernia without obstruction or gangrene (principal); K42.9 Umbilical hernia without obstruction or gangrene
CPT/HCPCS: 74160; Q9967

== ENCOUNTER 2023-10-31 21:57 | Emergency (ER) | payer OTHER ==
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
[2023-10-31 22:23] VITALS: BP 123/82; PULSE 82; RESP 18; TEMP 97.9
[2023-10-31] MEDS: IBUPROFEN 800 MG TAB PO STA (22:37)
--- NOTE | 2023-10-31 23:00 | XR ---
EXAM: XR Left Shoulder Complete, 2 or More Views CLINICAL HISTORY: ITS.REASON XR Reason: pain TECHNIQUE: Two or more views of the left shoulder. COMPARISON: No relevant prior studies available. FINDINGS: Bones/joints: No acute fracture or malalignment. Soft tissues: Unremarkable. IMPRESSION: No acute fracture or malalignment.
== END 2023-11-01 00:10 | disposition home or self-care (01) ==
LOC: EC 21:57
DX: S46.912A Strain of unspecified muscle, fascia and tendon at shoulder and upper arm level, left arm, initial encounter (principal); J45.909 Unspecified asthma, uncomplicated; Z88.1 Allergy status to other antibiotic agents; Z88.2 Allergy status to sulfonamides; Y04.0XXA Assault by unarmed brawl or fight, initial encounter; Y99.0 Civilian activity done for income or pay
CPT/HCPCS: 99284

== ENCOUNTER → 2024-04-07 | Outpatient (CLI) | payer BC ==
[2024-04-07 10:19] LABS: Basophils # (A) 0.04 X 10*3/uL (0.00-0.10); Basophils % (A) 0.5 %; Eosinophils # (A) 0.14 X 10*3/uL (0.04-0.35); Eosinophils % (A) 1.6 %; HCT 37.6 % (37.2-46.3); HGB 12.4 g/dL (12.0-15.0); Lymphocytes # (A) 3.35 X 10*3/uL (0.90-5.00); Lymphocytes % (A) 37.8 %; MCH 28.6 pg (27.0-32.0); MCV 86.6 FL (80.0-97.0); Mean Platelet Volume 9.8 FL (9.5-12.2); Monocytes # (A) 0.57 X 10*3/uL (0.20-1.00); Monocytes % (A) 6.4 %; NRBC Per 100 WBC 0 X 10*3/uL (0.00-0.01); Neutrophils # (A) 4.75 X 10*3/uL (1.80-7.70); Neutrophils % (A) 53.5 %; Platelet Count 327 X 10*3/uL (140-440); RBC 4.34 X 10*6/uL (4.10-5.20); RDW 12.9 % (11.5-14.5); WBC 8.87 X 10*3/uL (4.50-10.00)
[2024-04-07 10:28] LABS: ALT 21 U/L (8-44); AST 22 U/L (13-35); Albumin 4.7 g/dL (3.8-4.9); Albumin/Globulin Ratio 1.81 Ratio (1.60-3.17); Alkaline Phosphatase 57 U/L (41-126); BUN/Creat Ratio 24.62 Ratio (12.00-20.00); Blood Urea Nitrogen 19.7 mg/dL (9.0-27.0); Calcium 9.7 mg/dL (8.7-10.3); Carbon Dioxide 24.9 mmol/L (21.6-31.8); Chloride 102 mmol/L (96-109); Globulin 2.6 g/dL (1.6-3.3); Glucose 91 mg/dL (70-110); Potassium 4.4 mmol/L (3.5-5.5); Sodium 138 mmol/L (135-145); Total Bilirubin 0.3 mg/dL (0.3-1.2); Total Protein 7.3 g/dL (6.2-8.2)
== END | disposition home or self-care (01) ==
LOC: LABWHC1 07:04
PROVIDERS: ATTEND Internal Medicine Gastroenterology
DX: R10.13 Epigastric pain (principal)
CPT/HCPCS: 36415; 80053; 83516; 85025

== ENCOUNTER → 2025-01-08 | Outpatient (CLI) | payer BC ==
--- NOTE | 2025-01-08 08:23 | MR ---
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 COMPARISON: CT brain 11/28/2021. TECHNIQUE: Multi planar, multi sequence imaging was performed through the brain. The patient was then given 10 cc of Gadobutrol intravenously and multi planar, T1 fat-saturation images were obtained. FINDINGS: The jerry-white junctions, ventricular system, basal cisterns appear unremarkable. Age-appropriate cer ebral parenchymal volume. Diffusion-weighted imaging shows no evidence of restricted diffusion to sug gest acute/subacute infarct. Intracranial arterial flow voids are maintained. Midline structures show no abnormality. Couple of right frontoparietal subcortical T2/FLAIR hyperintense white matter foci w ith largest measuring up to 4.8 mm in the right parietal lobe (series 601, image 23). The susceptibil ity weighted images do not reveal any evidence for micro-hemorrhage. After administration of gadolini um, no abnormal enhancement is seen. The bone marrow signal is within normal limits. The paranasal sinuses and globes are unremarkable. N o evidence for flattening or bulging of the optic nerve heads. No abnormality of the optic nerve horan ths identified. IMPRESSION: 1. No evidence of intracranial mass, acute/subacute infarct, or abnormal enhancement. 2. Couple of nonspecific white matter foci changes without enhancement. Etiologies include demyelinat ing disease versus chronic migraines versus small vessel ischemic disease versus other. [facility], , 01/08/2025 8:20 AM
== END | disposition home or self-care (01) ==
LOC: RADMRIMAIN 07:13
PROVIDERS: ATTEND Ophthalmology
DX: H47.333 Pseudopapilledema of optic disc, bilateral (principal); R90.82 White matter disease, unspecified
CPT/HCPCS: 70553; A9585

== ENCOUNTER 2025-01-20 11:03 | Day surgery (SDC) | payer BC ==
[2025-01-16 08:48] VITALS: BMI 40.7
[2025-01-20 11:41] VITALS: RESP 16; TEMP 97.8
[2025-01-20] MEDS: IV FLUID CONTINUATION 1,000 ML IV ONE (11:46)
[2025-01-20] MEDS: LACTATED RINGERS 1,000 ML IV SCH (11:47)
[2025-01-20] MEDS ORDERED: MIDAZOLAM 2 MG/2 ML VIAL ONE (11:55)
[2025-01-20] MEDS ORDERED: fentaNYL (PF) 50 MCG/ML 2 ML AMP ONE (11:55)
--- NOTE | 2025-01-20 12:13 | P.PCN ---
Date of Procedure: 01/20/25 Procedure(s) Performed: Preoperative diagnosis: Pseudopapillary edema Post operative diagnoses: Pseudopapillary edema Procedure= lumbar puncture Anesthesia= moderate sedation with Versed 2 mg , and fentanyl 100 g, local infiltration with lidocaine 1% 3 mL. Sedation start time :1159, Sedation end time :12:09 Condition: stable Complication: none. Description of the procedure procedure risk and benefits discussed with the patient, consent signed. Patient and the procedure area placed in lateral position ( right side down ), back prepped with chlorhexidine 3 times been local infiltration of the skin and subcutaneous tissue with lidocaine 1% 3 mL for skin and subcu interstitial frustrations at L4 5 levels then 22-gauge Quincke-type needle advanced slowly at L4- 5 interlaminar space there was positive cerebrospinal fluid which was clear, no heme, no paresthesia ,total of 14 ML of clear cerebrospinal fluid collected in 4 different tubes 3-4 mL in each, then the needle removed and a Band-Aid applied and patient tolerated the procedure well without any complications. opening pressure =55 cm of water
[2025-01-20] MEDS: IV FLUID CONTINUATION 800 ML IV ONE (12:17)
[2025-01-20 12:48] LABS: Glucose,CSF 51 mg/dL (40-70); Total Protein,CSF 25 mg/dL (12-60)
[2025-01-20 13:12] VITALS: BP 106/75; PULSE 71
== END 2025-01-20 13:27 | disposition home or self-care (01) ==
LOC: ORPAIN 11:03
PROVIDERS: ATTEND Specialist
DX: H47.333 Pseudopapilledema of optic disc, bilateral (principal); Z88.1 Allergy status to other antibiotic agents
CPT/HCPCS: 81025; 88108; 84157; 82945; 62270; J2250; J3010; 99152